=== PATIENT | male | born 1955 | race Caucasian/White ===

== ENCOUNTER 2023-10-10 14:42 | Emergency (ER) | payer OTHER, SELFPAY ==
[2023-10-10 14:46] VITALS: BP 113/73
[2023-10-10 15:06] LABS: Hematocrit 42.9 % (39.0-52.0); Hemoglobin 15.5 g/dL (13.0-18.0); Mean Corp Hgb Conc. 36.1 g/dL (33.0-37.0); Mean Corpuscular Hgb 35.1 pg (27.0-31.0); Mean Corpuscular Volume 97.3 fL (80.0-94.0); Mean Platelet Volume 10.9 fL (7.4-10.4); Platelet Count 194 10^3/uL (130-400); Red Blood Cell Count 4.41 10^6/uL (4.70-6.10); Red Cell Dist. Width 12.7 % (11.5-14.5); White Blood Cell Count 8.2 10^3/uL (4.8-10.8)
[2023-10-10 15:18] LABS: ALT (SGPT) 41 U/L (0-50); AST (SGOT) 41 U/L (17-59); Albumin 3.7 g/dl (3.5-5.0); Alkaline Phosphatase 75 U/L (38-126); Blood Urea Nitrogen 27 mg/dl (9-20); Calcium 9.3 mg/dl (8.4-10.2); Carbon Dioxide 24 mmol/L (22-30); Chloride 101 mmol/L (98-107); Glucose 100 mg/dl (70-99); Lipase 219 U/L (23-300); Potassium 3.6 mmol/L (3.5-5.1); Sodium 130 mmol/L (135-145); Total Bilirubin 0.9 mg/dl (0.2-1.3); Total Protein 6.2 g/dl (6.3-8.2); eGFR > 60.00
[2023-10-10 15:21] VITALS: BP 121/76
[2023-10-10 15:32] LABS: Lymphocytes 14 % (20-51); Segmented Neutrophils 56 % (42-75); Total Cells Counted 100
[2023-10-10 15:33] LABS: Atypical Lymphocytes 11 %; Monocytes 19 % (2-9); Platelets Checked Yes
[2023-10-10 15:34] LABS: Anisocytosis Slight; Macrocytosis 2+; Normal RBC Morphology No; Poikilocytosis 1+
[2023-10-10 15:35] LABS: Acanthocytes 1+; Hypersegmented Neutrophil 1+
[2023-10-10] MEDS: OMNIPAQUE 50 ML PO (15:54)
[2023-10-10] MEDS: ZOFRAN 4 MG IV ×2 (15:54→19:57)
[2023-10-10] MEDS: NSS 1000 IV (15:55)
[2023-10-10 15:59] LABS: NT-proBNP 996 pg/ml
[2023-10-10 16:00] VITALS: BP 130/73
--- NOTE | 2023-10-10 16:19 | ED.GENMED ---
History of Present Illness
<Veena Ruano PA-C - Last Filed: 10/12/23 10:12>
General
Chief Complaint: Abdominal Symptoms
Source: patient
Exam Limitations: none
Time Seen by Provider: 10/10/23 14:58
Nursing documentation reviewed up to this point in time: agreed with
Travel History
Have you had any contact with someone who has COVID-19?: No
Do you have any symptoms of coronavirus? Fever > 100 degrees, chills, cough, shortness of breath, sore throat, loss of taste or smell, muscle aches, or headache?: No
History of Present Illness
History of Present Illness:
68-year-old male with a history of SVT status post ablation, COPD and former smoker not on oxygen, chronic back pain, hep C
Presents for nausea, vomiting multiple episodes and less episodes of diarrhea over the past 2 days. Patient says he has been intermittently been able to tolerate oral liquids in between vomiting. He has had brief periods where he has not vomited
for 2 or 3 hours and thought maybe symptoms were resolved but then was started again. His last episode was at 1 PM today. His is concerned about how long this has been going on. He had a remote partial colon resection due to frequent
diverticulitis bouts years ago. He has never had a bowel obstruction before. Patient also has had some chest tightness which feels like wheezing at the end of his expiration over the past 2 days. He has no exertional chest pain or shortness of
breath. He chronically wheezes. 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 Patient denies alcohol abuse. He is not having significant abdominal pain but just feels globally sore and crampy. His 1 episode of
diarrhea was loose watery but other episodes were more semiformed soft
HE HAS NOT HAD ANY BLOODY STOOL, EXERTIONAL CHEST PAIN
Past History
<Veena Ruano PA-C - Last Filed: 10/12/23 10:12>
Past History
ED Past Medical History: CAD, COPD and Other (Liver cirrhosis)
Social History
Tobacco: Smoker
Alcohol: Occasional
Drug: None
Personal:
Living: with family
Family History
Family History: Diabetes, Hypertension, CAD and Other (Hyperlipidemia)
Review of Systems
<Veena Ruano PA-C - Last Filed: 10/12/23 10:12>
Review of Systems
Allergies reviewed?: Yes
All Other Systems: Not applicable
Phy Exam
<MILE Brwon Last Filed: 10/12/23 10:12>
Physical Exam
Physical Exam:
GENERAL: Alert , in no apparent distress
EYE: pupils equal and reactive
NECK: Supple
ENT: o/p clr, slightly dry mouth
CARDIAC: Regular rate and rhythm . no edema
LUNGS: no resp distress, some mild end exp wheezes, moving good air, occ cough
ABDOMEN: Soft, mild tenderness, mild distension, no r/g, no cvat, normal bowel sounds
NEUROLOGICAL: Alert and oriented, no focal neuro deficits
SKIN: Warm and dry, skin intact.
MUSCULOSKELETAL: No edema, well perfused. neg roman's sign
PSYCH: Normal and appropriate interaction.
Course
<Veena Ruano PA-C - Last Filed: 10/12/23 10:12>
Orders/Labs/Results
Orders:
Orders
10/10/23 14:48
Electrocardiogram (*1) Urgent
Reason for Study: Abdominal Pain
Other Reason for Exam: chest tightness
10/10/23 14:49
EKG- Treatment ONCE
10/10/23 14:54
Complete Blood Count/With Diff Urgent
Comprehensive Metabolic Panel Urgent
Lipase Urgent
Manual Differential Urgent
NT-proBNP Urgent
Comment: add-on
Troponin I Urgent
10/10/23 15:33
CT Abd/pel W Iv And Oral Contr Urgent
Comment:
Reason For Exam: vomting x 2 days, h/o bowel resection
Iohexol [Omnipaque] See Protocol PO NOW STA
Ondansetron Injectable [Zofran] 4 mg IV NOW STA
CR Chest - 2 Views Urgent
Comment:
Reason For Exam: chest tighrtness, copd
10/10/23 15:35
Add On- LAB Urgent
Tests Added?: bnp
0.9% Sodium Chloride 1000 ml [Nss] 1,000 ml IV BOLUS
10/10/23 17:09
COVID-19 Antigen Urgent
Source: Nasal Swab
Influenza A+B Rapid Molecular Urgent
JOSELINE Source: Nasal Swab
Specimen Description:
10/10/23 17:40
Pantoprazole [Protonix IV] 40 mg IV NOW STA
10/10/23 19:53
Ondansetron Injectable [Zofran] 4 mg IV NOW STA
Abnormal Lab Results
10/10/23
14:54
RBC 4.41 L 10^6/uL
(4.70-6.10)
MCV 97.3 H fL
(80.0-94.0)
MCH 35.1 H pg
(27.0-31.0)
MPV 10.9 H fL
(7.4-10.4)
Lymphocytes (Manual) 14 L %
(20-51)
Monocytes (Manual) 19 H %
(2-9)
Sodium 130 L mmol/L
(135-145)
BUN 27 H mg/dl
(9-20)
Glucose 100 H mg/dl
(70-99)
Total Protein 6.2 L g/dl
(6.3-8.2)
10/10/23 14:54
02/18/24 14:54
Vital Signs
Initial and Last Documented VS:
Initial Vital Signs
Temp Pulse Resp BP Pulse Ox
98.7 F 51 16 113/73 96
10/10/23 14:46 10/10/23 14:46 10/10/23 14:46 10/10/23 14:46 10/10/23 14:46
Last Documented Vital Signs
Temp Pulse Resp BP Pulse Ox
98.7 F 52 16 123/80 93
10/10/23 14:46 10/10/23 18:45 10/10/23 18:45 10/10/23 18:06 10/10/23 18:45
<KARLOS Miller - Last Filed: 10/11/23 01:02>
Orders/Labs/Results
Orders:
Orders
10/10/23 14:48
Electrocardiogram (*1) Urgent
Reason for Study: Abdominal Pain
Other Reason for Exam: chest tightness
10/10/23 14:49
EKG- Treatment ONCE
10/10/23 14:54
Complete Blood Count/With Diff Urgent
Comprehensive Metabolic Panel Urgent
Lipase Urgent
Manual Differential Urgent
NT-proBNP Urgent
Comment: add-on
Troponin I Urgent
10/10/23 15:33
CT Abd/pel W Iv And Oral Contr Urgent
Comment:
Reason For Exam: vomting x 2 days, h/o bowel resection
Iohexol [Omnipaque] See Protocol PO NOW STA
Ondansetron Injectable [Zofran] 4 mg IV NOW STA
CR Chest - 2 Views Urgent
Comment:
Reason For Exam: chest tighrtness, copd
10/10/23 15:35
Add On- LAB Urgent
Tests Added?: bnp
0.9% Sodium Chloride 1000 ml [Nss] 1,000 ml IV BOLUS
10/10/23 17:09
COVID-19 Antigen Urgent
Source: Nasal Swab
Influenza A+B Rapid Molecular Urgent
JOSELINE Source: Nasal Swab
Specimen Description:
10/10/23 17:40
Pantoprazole [Protonix IV] 40 mg IV NOW STA
10/10/23 19:53
Ondansetron Injectable [Zofran] 4 mg IV NOW STA
Abnormal Lab Results
10/10/23
14:54
RBC 4.41 L 10^6/uL
(4.70-6.10)
MCV 97.3 H fL
(80.0-94.0)
MCH 35.1 H pg
(27.0-31.0)
MPV 10.9 H fL
(7.4-10.4)
Lymphocytes (Manual) 14 L %
(20-51)
Monocytes (Manual) 19 H %
(2-9)
Sodium 130 L mmol/L
(135-145)
BUN 27 H mg/dl
(9-20)
Glucose 100 H mg/dl
(70-99)
Total Protein 6.2 L g/dl
(6.3-8.2)
10/10/23 14:54
10/10/23 14:54
Vital Signs
Initial and Last Documented VS:
Initial Vital Signs
Temp Pulse Resp BP Pulse Ox
98.7 F 51 16 113/73 96
10/10/23 14:46 10/10/23 14:46 10/10/23 14:46 10/10/23 14:46 10/10/23 14:46
Last Documented Vital Signs
Temp Pulse Resp BP Pulse Ox
98.7 F 52 16 123/80 93
10/10/23 14:46 10/10/23 18:45 10/10/23 18:45 10/10/23 18:06 10/10/23 18:45
<Veena Ruano PA-C - Last Filed: 10/12/23 10:12>
MDM/Problems Addressed
Differential Diagnosis Includes:
gastroenteritis, gastritis, SBO, acs, pneumonia
MDM/Problems Addressed:
68 y/o M with h/o copd former smoker, hep c, divertic,
here with vomiting x 2 days, mild abd pain but mostly just nausea, mild diarrhea
and some chest tightness, which is with experiation, and not pleuritic, not exertional
he has vomited many times, and in between has been able to keep down liquids but it has been 2 full days of the vomiting so he felt time to be evaluated
remote bowel resection
no fever today but may have ahd a fever
slight loose stool yesterday
chest tightness x 2 days but not exertional and not cardiac sounding
has chronic COPD
and is immunecompromised from RA( on steroids and plaquenil)
pt is nontoxic appearing
his abdomen is globally mildly distended but without focal tenderness
lungs soudn trace end exp wheezes, not signifcant
given his surgical history and his immunocompromise, will CT
he does have EKG chagne with biphasic precordial lead ST segmetns when compared to most recent EKG but going back before that, he had these t waves previously
with this ches tpain that doesn't sound like acs, i feel that 1 troponin being negitave adequately rules out this chest sypmtom
will give zofran, fluids, protonix
pending CT dispo.
<KARLOS Miller - Last Filed: 10/11/23 01:02>
MDM/Problems Addressed
MDM/Problems Addressed:
68 y/o M with h/o copd former smoker, hep c, divertic,
here with vomiting x 2 days, mild abd pain but mostly just nausea, mild diarrhea
and some chest tightness, which is with experiation, and not pleuritic, not exertional
he has vomited many times, and in between has been able to keep down liquids but it has been 2 full days of the vomiting so he felt time to be evaluated
remote bowel resection
no fever today but may have ahd a fever
slight loose stool yesterday
chest tightness x 2 days but not exertional and not cardiac sounding
has chronic COPD
and is immunecompromised from RA( on steroids and plaquenil)
pt is nontoxic appearing
his abdomen is globally mildly distended but without focal tenderness
lungs soudn trace end exp wheezes, not signifcant
given his surgical history and his immunocompromise, will CT
he does have EKG chagne with biphasic precordial lead ST segmetns when compared to most recent EKG but going back before that, he had these t waves previously
with this ches tpain that doesn't sound like acs, i feel that 1 troponin being negitave adequately rules out this chest sypmtom
will give zofran, fluids, protonix
pending CT dispo.
194: Received signout. CAT scan is unremarkable. On exam patient reports he is feeling better. He has been drinking water. He feels very mildly nauseous. Will DC with Zofran, Protonix will give dose of Zofran now. Discussed with patient her
close outpatient follow-up with family doctor in the next 2 days and he is to return if any worsening of symptoms
<KARLOS Miller - Last Filed: 10/11/23 01:02>
*Critical Care Note
Total Time (30-74mins, 75-104mins- exclusive of procedures): Not Applicable
ED Attending Note
<Veena Ruano PA-C - Last Filed: 10/12/23 10:12>
-
Portions of this chart may have been created with voice recognition software.� Occasional wrong word or��sound alike� substitutions may have occurred due to the inherent limitations of voice recognition software.
Discharge Plan
Departure
Patient Disposition: Home (Routine Discharge)
Date of Disposition: 10/10/23
Time of Disposition: 19:52
Patient with high blood pressure during this ER visit?: No
Condition: Fair
Covid-19: Not Applicable
Discharge Problem:
Abdominal pain, nausea and vomiting
Instructions: Clear Liquid Diet, Nausea and Vomiting, Adult (DC), Abdominal Pain
Prescriptions:
New
ondansetron 4 mg tablet,disintegrating
4 mg PO Q8H PRN (Reason: nausea and vomiting) Qty: 10 0RF
pantoprazole [Protonix] 40 mg tablet,delayed release (DR/EC)
40 mg PO DAILY Qty: 14 0RF
No Action
hydroxychloroquine 200 MG tablet
200 mg PO BID
prednisone 5 MG tablet
7.5 mg PO DAILY@1929
tiotropium bromide [Spiriva with HandiHaler] 18 MCG capsule, w/inhalation device
1 puff inhalation R DAILY@1599
dabigatran etexilate [Pradaxa] 150 MG capsule
150 mg PO BID Qty: 60 2RF
diltiazem HCl 120 MG capsule,extended release 24hr
120 mg PO BID Qty: 60 0RF
acebutolol 400 mg Capsule
400 mg PO DAILY@1929
aspirin 81 mg Tablet,Delayed Release (Dr/Ec)
81 mg PO DAILY
leflunomide 20 mg Tablet
20 mg PO DAILY
hydrochlorothiazide 25 mg Tablet
25 mg PO DAILY
fluticasone furoate-vilanterol [Breo Ellipta] 200-25 mcg/dose Blister With Device
1 inh INHALATION R DAILY@1599
atorvastatin 80 MG tablet
80 mg PO DAILY@1929
Referrals:
Demetrius Viera PA-C [Family Provider] -
Activity Restrictions/Additional Instructions:
You were given a prescription for Zofran for nausea to take as directed every 8 hours as needed. This is a oral disintegrating tablet. Also given a prescription for Protonix to take daily for the next 2 weeks. Clear liquids for the first 24
hours followed by bland solid foods. Follow-up with your family doctor the next 2 to 3 days but return if any worsening of symptoms including continued vomiting not being able to tolerate fluids worsening abdominal pain fever chills or any further
concerns.
Interventions
Interventions:
*Risk Screen - Suicide Last Done: 10/10/23 14:49
*General Assessment Last Done: 10/10/23 14:49
*Neglect/Abuse Screening Last Done: 10/10/23 14:49
ED- Fall Risk Assessment Last Done: 10/10/23 16:14
*ED COVID-19 Vaccine History Last Done: 10/10/23 14:46
*Nursing Disposition Last Done: 10/10/23 20:21
DM-Qalcsx-Eqrdsazoxl Assessment Last Done: 10/10/23 14:49
Discharge Date and Time
Discharge Date/Time: 10/10/23 20:22
[2023-10-10 17:38] LABS: COVID-19 Antigen Negative (Negative)
[2023-10-10 17:42] VITALS: BP 144/105
[2023-10-10 18:06] VITALS: BP 123/80
[2023-10-10] MEDS: PROTONIX IV 40 MG IV (18:43)
== END 2023-10-10 20:22 | disposition home or self-care (01) ==
LOC: EMR 14:42
PROVIDERS: Physician Assistant; EMERGENCY PHYSICIAN Emergency Medicine; FAMILY PHYSICIAN Physician Assistant Medical
DX: R10.9 Unspecified abdominal pain (principal); R11.2 Nausea with vomiting, unspecified; R19.7 Diarrhea, unspecified; I47.10 Supraventricular tachycardia, unspecified; J44.9 Chronic obstructive pulmonary disease, unspecified; I25.10 Atherosclerotic heart disease of native coronary artery without angina pectoris; K74.60 Unspecified cirrhosis of liver; F17.200 Nicotine dependence, unspecified, uncomplicated; Z83.3 Family history of diabetes mellitus; Z83.438 Family history of other disorder of lipoprotein metabolism and other lipidemia; Z83.49 Family history of other endocrine, nutritional and metabolic diseases; Z86.79 Personal history of other diseases of the circulatory system; Z90.49 Acquired absence of other specified parts of digestive tract
CPT/HCPCS: 99284; 96374; 96375; 96376; 96361; 71046; 74177; 80053; 83690; 83880; 84484; 85025; 87502; 87811; 93005; Q9967

== ENCOUNTER 2023-11-16 16:32 | Inpatient (IN) | payer OTHER, SELFPAY ==
[2023-11-15] VITALS (7 sets, daily range): BP systolic 110–168; BP diastolic 74–96
[2023-11-15] MEDS: MORPHINE SULFATE 4 MG IV (16:32)
[2023-11-15] MEDS: NSS 500 IV (16:32)
[2023-11-15] MEDS: ZOFRAN 4 MG IV ×2 (16:32→20:43)
[2023-11-15 16:47] LABS: % Basophils 0.8 % (0-2); % Immature Granulocytes 0.6 % (0-0.5); % Lymphocytes 10.2 % (20.5-51.1); % Neutrophils 74.4 % (42.2-75.2); Absolute Basophils 0.1 10^3/uL (0-0.2); Absolute Immature Granulocytes 0.1 10^3/uL (0-0.05); Absolute Monocytes 1.3 10^3/uL (0.1-0.6); Absolute Neutrophils 7.1 10^3/uL (1.4-6.5); Hematocrit 44.5 % (39.0-52.0); Hemoglobin 15.8 g/dL (13.0-18.0); Mean Corp Hgb Conc. 35.5 g/dL (33.0-37.0); Mean Corpuscular Hgb 34.9 pg (27.0-31.0); Mean Corpuscular Volume 98.2 fL (80.0-94.0); Mean Platelet Volume 11.4 fL (7.4-10.4); Nucleated Red Blood Cells % 0 % (-); Platelet Count 174 10^3/uL (130-400); Red Blood Cell Count 4.53 10^6/uL (4.70-6.10); Red Cell Dist. Width 12.8 % (11.5-14.5); White Blood Cell Count 9.6 10^3/uL (4.8-10.8)
[2023-11-15 17:32] LABS: ALT (SGPT) 44 U/L (0-50); AST (SGOT) 49 U/L (17-59); Albumin 3.8 g/dl (3.5-5.0); Alkaline Phosphatase 71 U/L (38-126); Blood Urea Nitrogen 39 mg/dl (9-20); Calcium 9.7 mg/dl (8.4-10.2); Carbon Dioxide 24 mmol/L (22-30); Chloride 99 mmol/L (98-107); Glucose 111 mg/dl (70-99); Lipase 300 U/L (23-300); Potassium 3.4 mmol/L (3.5-5.1); Sodium 129 mmol/L (135-145); Total Bilirubin 1.1 mg/dl (0.2-1.3); Total Protein 6.3 g/dl (6.3-8.2); eGFR > 60.00
[2023-11-15 17:41] LABS: Troponin I 0.019 ng/ml
--- NOTE | 2023-11-15 19:09 | ED.GENMED ---
History of Present Illness
General
Chief Complaint: Abdominal Pain
Source: patient, records and spouse
Exam Limitations: none
Time Seen by Provider: 11/15/23 14:52
Nursing documentation reviewed up to this point in time: agreed with
Travel History
Have you had any contact with someone who has COVID-19?: No
Do you have any symptoms of coronavirus? Fever > 100 degrees, chills, cough, shortness of breath, sore throat, loss of taste or smell, muscle aches, or headache?: No
History of Present Illness
History of Present Illness:
68-year-old male with a past medical history of COPD, hepatitis C, prior history of diverticulitis and nephrolithiasis who presents to the emergency department for evaluation of abdominal pain. Patient reports onset of symptoms a few days ago and
have been intermittent since that time, constant today since 11 AM. He reports pain is located in left lower abdomen/periumbilical region. No clear triggering or relieving factors noted. Associated with nausea and multiple episodes of nonbloody
vomiting. He denies diarrhea or constipation. Denies fevers or chills. Denies any dysuria, hematuria, change in urinary frequency. He denies any other complaints. He has a prior history of partial colonic resection secondary to diverticulitis.
Past History
Past History
ED Past Medical History: CAD, COPD and Other (Liver cirrhosis)
Social History
Tobacco: Smoker
Alcohol: Occasional
Drug: None
Personal:
Living: with family
Family History
Family History: Diabetes, Hypertension, CAD and Other (Hyperlipidemia)
Review of Systems
Review of Systems
All Other Systems: ROS reviewed and negative except as documented in HPI and ROS
Constitutional: Denies fever or chills
EENT: Denies sore throat or runny nose
Respiratory: Denies cough or trouble breathing
Cardiac: Denies chest pain
ABD/GI: Reports abdominal pain, nausea and vomiting; Denies diarrhea or constipated
: Denies dysuria, frequency or flank pain
Musculoskeletal: Denies neck pain or back pain
Neurological: Denies headache, weakness or numbness
Phy Exam
Physical Exam
Physical Exam:
General: Awake, alert, oriented x3; appears mildly uncomfortable laying on his side in the stretcher, holding emesis bag
Head: Normocephalic, atraumatic
Eyes: Conjunctiva normal, sclera anicteric, pupils equal round and reactive to light bilaterally
Throat: Airway intact, handling secretions
Neck: Trachea midline, supple without meningismus
Lungs: Clear to auscultation bilaterally, no wheezing, rales, rhonchi
Heart: Regular rate and rhythm, no murmurs, gallops, or rubs
Abd: Soft, non distended, mildly tender to palpation periumbilical region and left lower quadrant with no peritoneal signs and no palpable masses or hernias
Neuro: No gross deficits
Skin: no rash
Extremities: Warm and well-perfused with no notable edema
Scores
Heart Failure Risk
Heart Failure Risk Score: Not Applicable
Heart Score for Chest Pain Patients
STEMI patient?: Not applicable
Withdrawal Assessment of Alcohol
Withdrawal Assessment Completed?: Not applicable
Course
Orders/Labs/Results
Orders:
Orders
11/15/23 16:02
Urinalysis Reflex To Culture Urgent
Iohexol [Omnipaque] See Protocol PO NOW STA
Morphine Sulfate 4 mg IV NOW STA
Ondansetron Injectable [Zofran] 4 mg IV NOW STA
11/15/23 16:13
CT Abd/pelvis W Iv Cont Urgent
Comment:
Reason For Exam: LLQ abd pain/flank pain
11/15/23 16:19
0.9% Sodium Chloride 500 ml [Nss] 500 ml IV BOLUS
11/15/23 16:21
Electrocardiogram (*1) Urgent
Reason for Study: Abdominal Pain
EKG- Treatment ONCE
11/15/23 16:29
Complete Blood Count/With Diff Urgent
Comprehensive Metabolic Panel Urgent
Lipase Urgent
Troponin I Urgent
11/15/23 20:33
HYDROmorphone [Dilaudid] 0.5 mg IV NOW STA
Mag Hydrox/Al Hydrox/Simeth [Maalox] 30 ml Phenobarb/Hyoscy/Atropine/Scop [] 10 ml PO NOW
Ondansetron Injectable [Zofran] 4 mg IV NOW STA
Pantoprazole [Protonix IV] 40 mg IV NOW STA
11/15/23 20:35
GASTROINTESTINAL CONSULT Urgent
Consulting Provider: Garret Hahn
Was physician already notified: Yes
Abnormal Lab Results
11/15/23
16:29
RBC 4.53 L 10^6/uL
(4.70-6.10)
MCV 98.2 H fL
(80.0-94.0)
MCH 34.9 H pg
(27.0-31.0)
MPV 11.4 H fL
(7.4-10.4)
Abs Immat Gran (auto) 0.1 H 10^3/uL
(0-0.05)
Absolute Neuts (auto) 7.1 H 10^3/uL
(1.4-6.5)
Absolute Lymphs (auto) 1.0 L 10^3/uL
(1.2-3.4)
Absolute Monos (auto) 1.3 H 10^3/uL
(0.1-0.6)
Immature Gran % 0.6 H %
(0-0.5)
Lymphocytes % 10.2 L %
(20.5-51.1)
Monocytes % 14.0 H %
(1.7-9.3)
Sodium 129 L mmol/L
(135-145)
Potassium 3.4 L mmol/L
(3.5-5.1)
BUN 39 H mg/dl
(9-20)
Glucose 111 H mg/dl
(70-99)
11/15/23 16:29
11/15/23 16:29
Vital Signs
Initial and Last Documented VS:
Initial Vital Signs
Temp Pulse Resp BP Pulse Ox
36.5 C 60 18 168/96 95
11/15/23 14:18 11/15/23 14:18 11/15/23 14:18 11/15/23 14:18 11/15/23 14:18
Last Documented Vital Signs
Temp Pulse Resp BP Pulse Ox
36.5 C 63 21 136/82 94
11/15/23 14:18 11/15/23 17:30 11/15/23 17:30 11/15/23 17:00 11/15/23 17:30
MDM/Problems Addressed
Differential Diagnosis Includes:
Diverticulitis, nephrolithiasis, pyelonephritis, gastritis, pancreatitis, bowel obstruction
MDM/Problems Addressed:
68-year-old male presents for evaluation of abdominal pain intermittently over the past few days constant since 11 AM today associated with nausea and vomiting. Hypertensive but otherwise normal vitals. Physical exam as above. Plan to place an IV
check labs including CBC and CMP, lipase. Will send for CT of the abdomen pelvis. Will treat symptomatically and provide fluids. Will monitor closely reassess after the above.
Labs reviewed: CBC unremarkable, CMP shows some hyponatremia to 129 with mild hypokalemia 3.4; supple creatinine. Liver function test normal. Lipase normal. He had an EKG and a troponin sent in triage with his nausea and vomiting; troponin
undetectable and EKG shows no STEMI. QT interval acceptable. Awaiting results of CT.
CT shows no acute pathology to account for patient's symptoms. Clinical reassessment patient minimal improvement still laying on the side of the bed holding emesis basin and dry heaving. Will treat with additional medications. He had a very
similar presentation in September no clear cause was identified for his symptoms at that point in time. This is now his second visit for these issues at this time symptoms are improving symptomatic treatment. Suspect likely acute gastritis or
potentially gastric ulcer at this point. Will admit for continued symptom management and GI consultation�discussed case with GI for evaluation. Discussed case with hospitalist for admission.
Chronic conditions affecting care:
Hypertension, surgical history of bowel resection
Acute Exacerbation and/or Progression of Chronic Illness:
Acutely hypertensive resolved with treatment of his symptoms
Acute Exacerbation and/or Progression of Chronic Illness: HTN
*Radiology
Radiology exam reviewed: radiology read reviewed
*Pulse Oximetry
Patient hypoxic: no
*EKG
Interpreted by ED Provider?: Yes
Heart Rate: 55
Rate: bradycardiac
Rhythm: sinus
[place]: left axis deviation
Interval: normal interval
QRS Pattern: normal QRS
Ischemia: other (Patient has biphasic T waves anterior lateral leads similar to prior EKG)
*Critical Care Note
Total Time (30-74mins, 75-104mins- exclusive of procedures): Not Applicable
Data Reviewed
Review of Other/Old Records Reveals: Labs, Records and Radiology Studies
Source: patient and spouse
Patient Management
Discussion with other providers: Hospitalist (Discussed with hospitalist) and Senior Planning Analyst (Discussed with gastroenterology)
Escalation/DeEscalation of care consider admission/obs:
Admission indicated
ED Attending Note
-
Portions of this chart may have been created with voice recognition software.� Occasional wrong word or��sound alike� substitutions may have occurred due to the inherent limitations of voice recognition software.
Discharge Plan
Departure
Admit to doctor: [facility]
Presentation/result/management discussed w/ accepting MD/DO: Hospitalist
Discharge Problem:
Intractable abdominal pain, Nausea & vomiting, Hypokalemia
Prescriptions:
No Action
hydroxychloroquine 200 MG tablet
200 mg PO BID
prednisone 5 MG tablet
7.5 mg PO DAILY@1930
tiotropium bromide [Spiriva with HandiHaler] 18 MCG capsule, w/inhalation device
1 puff inhalation R DAILY@1600
dabigatran etexilate [Pradaxa] 150 MG capsule
150 mg PO BID Qty: 60 2RF
diltiazem HCl 120 MG capsule,extended release 24hr
120 mg PO BID Qty: 60 0RF
acebutolol 400 mg Capsule
400 mg PO DAILY@1929
aspirin 81 mg Tablet,Delayed Release (Dr/Ec)
81 mg PO DAILY
leflunomide 20 mg Tablet
20 mg PO DAILY
hydrochlorothiazide 25 mg Tablet
25 mg PO DAILY
fluticasone furoate-vilanterol [Breo Ellipta] 200-25 mcg/dose Blister With Device
1 inh INHALATION R DAILY@1600
atorvastatin 80 MG tablet
80 mg PO DAILY@1929
ondansetron 4 mg tablet,disintegrating
4 mg PO Q8H PRN (Reason: nausea and vomiting) Qty: 10 0RF
pantoprazole [Protonix] 40 mg tablet,delayed release (DR/EC)
40 mg PO DAILY Qty: 14 0RF
Referrals:
Demetrius Viera PA-C [Family Provider] -
Interventions
Interventions:
*Risk Screen - Suicide Last Done: 11/15/23 14:18
*General Assessment Last Done: 11/15/23 14:18
*Neglect/Abuse Screening Last Done: 11/15/23 14:18
*ED COVID-19 Vaccine History Last Done: 11/15/23 16:44
FQ-Pazkft-Jrcwnowtwy Assessment Last Done: 11/15/23 16:43
[2023-11-15] MEDS: DILAUDID 0.5 MG IV (20:42)
[2023-11-15] MEDS: MAALOX 40 PO (20:42)
[2023-11-15] MEDS: PROTONIX IV 40 MG IV (20:42)
--- NOTE | 2023-11-15 21:36 | HPS.HSE ---
Family Physician
-
Family Physician: Demetrius Viera
Chief Complaint
-
abdominal pain
History of Present Illness
68-year-old male past medical history of hepatitis C, prior alcohol use, alcoholic cirrhosis, CAD, paroxysmal atrial fibrillation, COPD, diverticulitis status post partial colonic resection in 2011, nephrolithiasis, CVA, rheumatoid arthritis,
smoking, MAC infection, presenting to the emergency room for abdominal pain. Abdominal pain started few days ago and has been intermittent since then constant since 11 AM today. Pain is located in the left lower abdomen/periumbilical region. Pain
does not radiate to the chest or back or flank. Pain is described as a muscle spasms can change in intensity. He had multiple episodes of vomiting over the past several days. He also has a feeling like he has to have a bowel movement and some
rectal pressure but nothing has come out. Denies any diarrhea or constipation.
Patient had pain like this previously in September and was given Zofran, IV fluids and Protonix with improvement in pain and he was discharged. He denies any chronic pain.
Pain is slightly better when he lies on his right side. No change in eating although he has not been able to eat because he has been constantly vomiting over the past few days. He did have some esophageal irritation after vomiting. He denies any
diarrhea or constipation. He denies any fevers or chills. Denies any urinary symptoms.
He does use marijuana occasionally which has not used in a few days. No longer drinks alcohol. No longer smokes.
Medical History
Past Medical History
Past Medical History: Reports Other (hepatitis C, prior alcohol use, alcoholic cirrhosis, CAD, paroxysmal atrial fibrillation, COPD, diverticulitis status post partial colonic resection in 2012, nephrolithiasis, CVA, rheumatoid arthritis, smoking,
MAC infection)
Past Surgical History: Reports Bowel Resection
Social History
Tobacco: Former Smoker
Alcohol: Former
Drug: Marijuana
Family History
Family History: Not pertinent
Allergies / Home Medications
Allergies reflects when Allergies were last updated in [facility].
Home Medications with original date entered in [facility]
Allergy/Medication List:
Allergies
Allergy/AdvReac Type Severity Reaction Status Date / Time
No Known Allergies Allergy Verified 10/10/23 14:48
Home Medications
hydroxychloroquine 200 mg tablet 200 mg PO BID rheumatoid arthritis 06/05/20
prednisone 5 mg tablet 7.5 mg PO DAILY@1929 Anti-inflammatory 07/13/20
tiotropium bromide 18 mcg capsule with inhalation device (Spiriva with HandiHaler) 1 puff inhalation R DAILY@1600 Lung/breathing issues 07/13/20
dabigatran etexilate 150 mg capsule (Pradaxa) 150 mg PO BID #60 caps 07/16/20
diltiazem HCl 120 mg capsule,extended release 24 hr 120 mg PO BID ##60 07/16/20
acebutolol 400 mg capsule 400 mg PO DAILY@192910/10/23
aspirin 81 mg tablet,delayed release 81 mg PO DAILY 10/10/23
atorvastatin 80 mg tablet 80 mg PO DAILY@1930 10/10/23
fluticasone furoate 200 mcg-vilanterol 25 mcg/dose inhalation powder (Breo Ellipta) 1 inh inhalation R DAILY@1600 10/10/23
hydrochlorothiazide 25 mg tablet 25 mg PO DAILY 10/10/23
leflunomide 20 mg tablet 20 mg PO DAILY 10/10/23
ondansetron 4 mg disintegrating tablet 4 mg PO Q8H PRN nausea and vomiting #10 tabs 10/10/23
pantoprazole 40 mg tablet,delayed release (Protonix) 40 mg PO DAILY #14 tabs 10/10/23
Review of Systems
-
History Source: Patient
A 12 point ROS was completed and negative except as noted: Yes
Constitutional: Reports No Symptoms
EENT: Reports No Symptoms
Respiratory: Reports No Symptoms
Cardiac: Reports No Symptoms
Abdomen/GI: Reports See HPI
: Reports No Symptoms
Musculoskeletal: Reports No Symptoms
Skin: Reports No Symptoms
Neurological: Reports No Symptoms
Endocrine: Reports No Symptoms
Hematologic/Lymphatic: Reports No Symptoms
Psych: Reports No Symptoms
Physical Exam
Vital Signs
Vital Signs
Temp Pulse Resp BP Pulse Ox
97.7 F 57 17 138/74 95
11/15/23 14:18 11/15/23 21:00 11/15/23 21:00 11/15/23 18:00 11/15/23 21:00
Physical Exam
General: Well Developed, Well Nourished and No Apparent Distress
HEENT: NormoCephalic, Moist mucous membranes and Atraumatic
Respiratory: Clear
Cardiac: S1/S2 and Regular Rhythm; No Murmur or Rub
GI: Soft, Non Distended, Normal Bowel Sounds and Tender (LLQ ); No Organomegaly
Rectal: Deferred by Provider
Musculoskeletal: No Clubbing, No Cyanosis and No Edema
Skin: No Rash
Neuro: Nonfocal/grossly intact
Laboratory Results
-
11/15/23 16:29
11/15/23 16:29
Laboratory Results
Total Bilirubin 1.1 mg/dl (0.2-1.3) 11/15/23 16:29
AST 49 U/L (17-59) 11/15/23 16:29
ALT 44 U/L (0-50) 11/15/23 16:29
Alkaline Phosphatase 71 U/L (38-126) 11/15/23 16:29
Troponin I 0.019 ng/ml 11/15/23 16:29
Lipase 300 U/L (23-300) 11/15/23 16:29
Data Reviewed
-
Lab Data: Labs Reviewed by me
Old Records: Reviewed
Impression/Plan
-
IMPRESSION:
PLAN:
# Intractable abdominal pain unclear etiology possibly gastritis, given chronic steroid use
-Lipase 300
-EKG without any new changes
-CT abdomen pelvis shows no evidence of acute pathology in the abdomen or pelvis
-Protonix given
-Morphine, Dilaudid given
-Zofran given
-IV fluids given, continue
-As needed dicyclomine
-Continue as needed Dilaudid
-Continue Protonix twice daily
-N.p.o. for now
-GI consulted
# Hypokalemia secondary to vomit
-Replete potassium
# Chronic hyponatremia
-Stable
History of hepatitis C status posttreatment
History of alcoholic cirrhosis
Coronary artery disease
-Continue aspirin
-Continue acebutolol
Paroxysmal atrial fibrillation
-Continue Pradaxa
-Continue diltiazem
COPD
-Continue inhalers
History of diverticulitis status post partial colonic resection
History of nephrolithiasis
History of CVA
-Continue statin
Essential hypertension
-Continue hydrochlorothiazide
History of MAC infection
Rheumatoid arthritis
-Continue leflunomide, prednisone
Marijuana user
Former alcohol user
Former smoker
Full code
DVT prophylaxis�heparin
N.p.o.
[2023-11-15] MEDS: KCL 260 MEQ IV (21:49)
[2023-11-16] VITALS (7 sets, daily range): BP systolic 97–143; BP diastolic 64–93; BMI 21.6; BMI 21.0
[2023-11-16] MEDS: NSS 1000 IV ×2 (00:53→15:22)
--- NOTE | 2023-11-16 05:17 | W.PN.UPDATE ---
Update Note
Progress Note Update
pt ordered pradaxa and heparin sq.
Admitting note states cont pradaxa, so will dc heparin sq
[2023-11-16 06:24] LABS: % Basophils 1.3 % (0-2); % Immature Granulocytes 0.4 % (0-0.5); % Lymphocytes 20.1 % (20.5-51.1); % Monocytes 17.7 % (1.7-9.3); % Neutrophils 60.5 % (42.2-75.2); Absolute Basophils 0.1 10^3/uL (0-0.2); Absolute Lymphocytes 1.3 10^3/uL (1.2-3.4); Absolute Monocytes 1.2 10^3/uL (0.1-0.6); Hematocrit 39.3 % (39.0-52.0); Hemoglobin 13.4 g/dL (13.0-18.0); Mean Corp Hgb Conc. 34.1 g/dL (33.0-37.0); Mean Corpuscular Hgb 34.7 pg (27.0-31.0); Mean Corpuscular Volume 101.8 fL (80.0-94.0); Mean Platelet Volume 11.6 fL (7.4-10.4); Nucleated Red Blood Cells % 0 % (-); Platelet Count 151 10^3/uL (130-400); Red Blood Cell Count 3.86 10^6/uL (4.70-6.10); Red Cell Dist. Width 12.8 % (11.5-14.5); White Blood Cell Count 6.7 10^3/uL (4.8-10.8)
--- NOTE | 2023-11-16 06:54 | CON.GI ---
Addendum entered and electronically signed by Garret Hahn MD 11/16/23 17:36:
I saw and examined the patient.
The PA's note was reviewed and I agree with the note.
Comment:
Pt is a 68 year old male with h/o HCV s/p Epclusa with F2-3 on fibroscan, prior ETOH, afib on Pradaxa,�CAD, PAD, COPD, RA on Hydroxychloroquine, Prednisone,�and leflunomide, diverticulitis with prior resection, MAC infection who p/w abdominal pain
and vomiting.�
Impression / Rec:
1. Abdominal pain - started from about month ago, had milder pain in the interim but severe episode x 2, this is the second admission for this. CT in with IV and oral contrast unremarkable, and repeat on admission with IV contrast without
significant findings. Has been having normal BM during these episodes, no blood in stool or diarrhea. Normal LFT's and lipase. Last colonoscopy at 2008 and possible repeat around 2011 with prior diverticulitis episode.� No prior EGD.� The
etiology of his pain is unclear at this time. Will consider EGD/colonoscopy for further eval given this is his second presentation for his recurrent symptoms. CLD tomorrow and bowel prep tomorrow for procedures .
Original Note:
Consultation
-
Date/Time Consultation Requested: 11/15/232029
Date/Time Consultation Performed: 11/16/23814
Requesting Provider: Prem Dacosta MD
Performing Provider: KARLOS Cazares, Garret Hahn MD
Reason for Consultation: abdominal pain
Medical History
Chief Complaint / HPI
Chief Complaint: abdominal pain
History of Present Illness:
Pt is a 68yo with hx hep C with prior treatment with Epclusa in 2016 with fibroscan F2-3 at that time, prior ETOH last 8 years ago, afib on Pradaxa, CAD, PAD, COPD,RA on chronic Hydroxychloroquine, Prednisone, and leflunomide, TIA,
diverticulitis with prior resection, MAC infection with admission for abdominal pain and vomiting . Pt has CT in September with IV and oral contrast with similar symptoms and repeat on admission with IV contrast without significant findings. Labs
notable for macrocytosis with normal hbg, Na 129, k 3.4, with normal LFT's and lipase.
In reviewing with patient pain is intermittent. Was worse in September with neg work up now recurrent. Pain is left mid/ Left lower quadrant. Some improvement with lying on right side. He denies pain at hip site. He admits to nausea with
dry heaves and wt loss with not eating and decreased appetite due to pain. He denies dysphagia, GERD, diarrhea, constipation or rectal bleeding. Last colonoscopy at 2008 and possible repeat around 2011 with prior diverticulitis episode. No
prior EGD. No NSAID use or recent change in medications.
Past Medical History
Past Medical History: Arrhythmias (SVT, PAF), CAD, COPD, CVA (TIA), HTN and Other (hep C, ETOH abuse quit 8 years ago, diverticulitis, pre DM, nicotine dependence, prior tobacco, emphysema, nephrolithiasis, RA, MAC infection)
Past Surgical History: Cardiac (SVT ablation) and Other (large bowel resection, lipoma excision from leg)
Social History
Tobacco: Former Smoker (quit 4 years ago )
Alcohol: Former (quit 8 years ago )
Drug: Marijuana
Personal:
Living: With Family
Employment: Retired
Family History
Family History: Other (father with hx polyps)
Allergies / Home Medications
Allergy/AdvReac Type Severity Reaction Status Date / Time
No Known Allergies Allergy Verified 10/10/23 14:48
Medication Instructions Recorded
hydroxychloroquine 200 mg tablet 200 mg PO BID rheumatoid arthritis 06/05/20
prednisone 5 mg tablet 7.5 mg PO DAILY@1930 07/13/20
Anti-inflammatory
tiotropium bromide 18 mcg capsule 1 puff inhalation R DAILY@1600 07/13/20
with inhalation device (Spiriva Lung/breathing issues
with HandiHaler)
dabigatran etexilate 150 mg 150 mg PO BID #60 caps 07/16/20
capsule (Pradaxa)
diltiazem HCl 120 mg 120 mg PO BID ##60 07/16/20
capsule,extended release 24 hr
acebutolol 400 mg capsule 400 mg PO DAILY@1930 10/10/23
aspirin 81 mg tablet,delayed 81 mg PO DAILY 10/10/23
release
atorvastatin 80 mg tablet 80 mg PO DAILY@1930 10/10/23
fluticasone furoate 200 1 inh inhalation R DAILY@1600 10/10/23
mcg-vilanterol 25 mcg/dose
inhalation powder (Breo Ellipta)
hydrochlorothiazide 25 mg tablet 25 mg PO DAILY 10/10/23
leflunomide 20 mg tablet 20 mg PO DAILY 10/10/23
ondansetron 4 mg disintegrating 4 mg PO Q8H PRN nausea and 10/10/23
tablet vomiting #10 tabs
pantoprazole 40 mg tablet,delayed 40 mg PO DAILY #14 tabs 10/10/23
release (Protonix)
Review of Systems
-
History Source: Patient
Constitutional: Reports Weight Loss and Fatigue
EENT: Reports No Symptoms
Respiratory: Reports No Symptoms
Abdomen/GI: Reports Abdominal Pain (LLQ ) and Nausea (with mostly dry heaves )
: Reports No Symptoms
Musculoskeletal: Reports Joint Pain (with hx RA)
Neurological: Reports No Symptoms
Endocrine: Reports No Symptoms
Hematologic/Lymphatic: Reports No Symptoms
Vital Signs
Temp Pulse Resp BP Pulse Ox
97.7 F 52 14 97/67 94
11/15/23 14:18 11/16/23 05:45 11/16/23 05:45 11/16/23 00:00 11/16/23 01:45
Physical Exam
Exam
General: Well Developed, Well Nourished and No Apparent Distress
HEENT: Normocephalic and Anicteric
Respiratory: Clear
Cardiac: Other (bradycardia )
GI: Soft, Non Distended and Tender (LLQ without rebound or guarding)
Musculoskeletal: No Clubbing and No Cyanosis
Skin: Warm and Dry
Neuro: Awake, Alert and AO x 3
Psych: Calm
Results
WBC 6.7 10^3/uL (4.8-10.8) 11/16/23 05:55
Hgb 13.4 g/dL (13.0-18.0) 11/16/23 05:55
Hct 39.3 % (39.0-52.0) 11/16/23 05:55
MCV 101.8 fL (80.0-94.0) H 11/16/23 05:55
Plt Count 151 10^3/uL (130-400) 11/16/23 05:55
Absolute Neuts (auto) 4.0 10^3/uL (1.4-6.5) 11/16/23 05:55
Sodium 129 mmol/L (135-145) L 11/15/23 16:29
Potassium 3.4 mmol/L (3.5-5.1) L 11/15/23 16:29
Chloride 99 mmol/L (98-107) 11/15/23 16:29
Carbon Dioxide 24 mmol/L (22-30) 11/15/23 16:29
BUN 39 mg/dl (9-20) H 11/15/23 16:29
Creatinine 1.2 mg/dL (0.7-1.3) 11/15/23 16:29
Calcium 9.7 mg/dl (8.4-10.2) 11/15/23 16:29
Total Bilirubin 1.1 mg/dl (0.2-1.3) 11/15/23 16:29
AST 49 U/L (17-59) 11/15/23 16:29
ALT 44 U/L (0-50) 11/15/23 16:29
Alkaline Phosphatase 71 U/L (38-126) 11/15/23 16:29
Lipase 300 U/L (23-300) 11/15/23 16:29
Diagnostic Image Results:
11/15/23 CT Abd/pelvis W Iv Cont
There is no evidence of acute pathology in the abdomen or pelvis
Imaging for bowel pathology is limited by the lack of enteric contrast
If there is clinical concern for bowel pathology, this study could be repeated with enteric contrast
There is distal sigmoid anastomosis
Diverticuli are present in the colon with no CT evidence of diverticulitis
10/10/23 CT A/p IV and oral
No CT evidence for an acute process in the abdomen or pelvis.
Prior GI Procedures:
EGD: none
Colonoscopy: 2008 [place] -diverticulosis, non bleeding hemorrhoids
Assessment / Plan
-
Pt is a 68yo with hx hep C prior Epclusa treatment with F2-3 on fibroscan at that time, prior ETOH, afib on Pradaxa, CAD, PAD, COPD, RA on Hydroxychloroquine, Prednisone, and leflunomide, diverticulitis with prior resection, MAC infection with
admission for abdominal pain and vomiting. Pt has CT in September with IV and oral contrast and repeat on admission with IV contrast without significant findings. Labs notable for macrocytosis with normal hbg, Na 129, k 3.4, with normal LFT's and
lipase. Last colonoscopy at 2008 and possible repeat around 2011 with prior diverticulitis episode. No prior EGD. No NSAID use or recent change in medications.
-left mid/lower abdominal pain
-nausea/dry heaves with left sided pain
-wt loss
-bradycardia in exam
-macrocytosis
-afib on Pradaxa
-Hx hep C prior Epclusa treatment , prior ETOH abuse
other medical problems:
-RA on Hydroxychloroquine, Prednisone, and leflunomide
-COPD
-CAD
-diverticulitis with prior resection 2011 at [facility]
-MAC infection
-TIA
PLAN:etiology of abdominal pain with vomiting with wt loss unclear
CT x 2 stable and now large volume vomiting
t/c EGD/colon with wt loss weight 70 kg in 2020 now down to [address] Ballard for Pradaxa hold and HR issues
will review with Dr. Hahn
hold diet til decide on scopes
hx hep C with prior treatment. Liver appears compensated with normal LFT's, albumin, platelet and liver normal on 2 CT's will add INR
will follow
-
-
Thank you for consultation and allowing me to participate in the patient's care. Please call the television specialist GI physician during the after hours with any questions or concerns.
[2023-11-16 07:10] LABS: Urine Albumin Trace (Neg - Trace); Urine Bilirubin Negative (Negative); Urine Glucose Negative (Negative); Urine Ketone Trace (Negative); Urine Leukocyte Negative (Negative); Urine Nitrite Negative (Negative); Urine Occult Blood Negative (Negative); Urine Specific Gravity 1.015 (<1.030); Urine Urobilinogen Negative (Neg - 1+)
[2023-11-16 07:11] LABS: Urine Character Clear (Clear); Urine Color Yellow
[2023-11-16] MEDS: SYMBICORT 160/4.5 MCG INHALER 2 PUFF INH (08:40)
[2023-11-16] MEDS: SPIRIVA RESPIMAT 2.5 MCG 2 PUFF INH (08:43)
[2023-11-16] MEDS: ORETIC PO (08:47)
[2023-11-16] MEDS: PROTONIX IV 40 MG IV ×2 (09:56→21:45)
[2023-11-16] MEDS: NSS (PRESERVATIVE FREE) 10 ML IV ×2 (09:56→21:45)
[2023-11-16] MEDS: ASPIR LOW (ENTERIC COATED) 81 MG PO (10:01)
[2023-11-16 11:42] LABS: Blood Urea Nitrogen 24 mg/dl (9-20); Calcium 8.5 mg/dl (8.4-10.2); Carbon Dioxide 23 mmol/L (22-30); Chloride 106 mmol/L (98-107); Estimated Creatinine Clearance 74 ml/min; Glucose 76 mg/dl (70-99); Potassium 3.6 mmol/L (3.5-5.1); Sodium 131 mmol/L (135-145); eGFR > 60.00
--- NOTE | 2023-11-16 12:12 | W.PN.HOSP.TC ---
Today's Communication/Plan
-
Monitor vital signs and see plan
NPO per GI
Decrease diltiazem to 120 mg daily
Hold Pradaxa for GI scope
Assessment / Plan
Assessment / Plan
General: Well Developed, Well Nourished and No Apparent Distress
HEENT: NormoCephalic, Moist mucous membranes and Atraumatic
Respiratory: Clear
Cardiac: S1/S2 and Regular Rhythm; No Murmur or Rub
GI: Soft, Non Distended, Normal Bowel Sounds and Tender (LLQ )
Rectal: Deferred by Provider
Musculoskeletal: No Clubbing, No Cyanosis and No Edema
Skin: No Rash
Neuro: Nonfocal/grossly intact
Intractable abdominal pain unclear etiology possibly gastritis, given chronic steroid use
-Lipase 300
-EKG without any new changes
-CT abdomen pelvis shows no evidence of acute pathology in the abdomen or pelvis
-Protonix
-Morphine, Dilaudid given
-Zofran given
-IV fluids given, continue
-As needed dicyclomine
-Continue as needed Dilaudid
-Continue Protonix twice daily
-N.p.o. for now
-GI following; plan for possible EGD and cscope; holding pradaxa per GI rec
# Hypokalemia secondary to vomit
improving
# Mild Acute on chronic hyponatremia
monitor
History of hepatitis C status posttreatment
History of alcoholic cirrhosis
Coronary artery disease
-Continue aspirin
-Continue acebutolol
Paroxysmal atrial fibrillation
currently sinus ciro
-hold Pradaxa
-Continue diltiazem; dec to 120mg daily
also on acebutolol
COPD
-Continue inhalers
History of diverticulitis status post partial colonic resection
History of nephrolithiasis
History of CVA
-Continue statin
Chronic pain from arthritis
Uses medical marijuana
Essential hypertension
-Continue hydrochlorothiazide
History of MAC infection
Rheumatoid arthritis
-Continue leflunomide, prednisone
Marijuana user
Former alcohol user
Former smoker
Full code
DVT prophylaxis�SCD's
Anticipated Discharge: > 48 hours
Subjective/Interval History
-
Date of Service: November 16, 2023
denies nausea
Objective Data
-
Labs:
Laboratory Results
11/16/23 11/16/23
05:55 11:15
WBC 6.7
Hgb 13.4
Hct 39.3
Plt Count 151
Sodium 131 L
Potassium 3.6
Chloride 106
Carbon Dioxide 23
BUN 24 H
Creatinine 0.9
Glucose 76
Calcium 8.5
Vital Signs:
Vital Signs
Temp Pulse Resp BP Pulse Ox
98.5 F 61 26 108/64 92
11/16/23 07:04 11/16/23 12:00 11/16/23 12:00 11/16/23 07:00 11/16/23 12:00
[2023-11-16] MEDS: PLAQUENIL PO (12:57)
--- NOTE | 2023-11-16 15:32 | PTCARENOTE ---
Received pt from ER via stretcher, accompanied by ER staff. Pt AAO x3, LYONS well, ambulatory to bed with minimal assistance; denies weakness/dizziness. VSS. On room air- pulse ox 97%, no c/o SOB. Abd soft, rounded, BS decreased, pt aware of NPO
status; no c/o abd discomfort nausea at present. Pt DTV, urinal at bedside. IVF's NSS @ 80 ml/hr infusing via Lt forearm site withot sx of infiltration. Oriented to 4east, currently resting comfortably. Will continue to monitor.
[2023-11-16] MEDS: SYMBICORT 160/4.5 MCG INHALER INH (19:47)
[2023-11-16] MEDS: ZOFRAN 4 MG IV (21:43)
[2023-11-16] MEDS: DILAUDID 0.5 MG IV (21:43)
[2023-11-16] MEDS: LIPITOR 80 MG PO (22:07)
[2023-11-16] MEDS: DELTASONE 7.5 MG PO (22:07)
[2023-11-16] MEDS: SECTRAL PO (22:08)
[2023-11-16] MEDS: PLAQUENIL 200 MG PO (22:19)
[2023-11-16] MEDS: SECTRAL 200 MG PO (22:23)
[2023-11-17] MEDS: NSS 1000 IV (03:42)
--- NOTE | 2023-11-17 03:54 | DOWNTIME ---
There was a [employer] Client [employer] [facility] [employer] Downtime on 11/17/2023 from 0100 to 11/17/2023 at 0322. Downtime documentation of patient's care, including medication administrations, has been reconciled in the electronic record per guidelines. Refer to the
patient's paper chart under the miscellaneous tab to see printed paper medication records and downtime forms.
--- NOTE | 2023-11-17 03:54 | PTCARENOTE ---
Pt aaox3 able to make his needs known. Pt was angry & irritated at change of shift as he is on clear liquid diet, his meds were ordered back again, he will only go for procedure on . Pt was provided with plan of care,emotional support
provided.PRN pain meds were given for abdominal pain & meds for nausea. DRESSAGE INSTRUCTOR farm demonstrator made aware of pt refuses to take 400mg of his sectral PO & prefers to take only 200mg, Pt also refused his scds. Plan of care continued. Call caldera in reach.
[2023-11-17 06:26] LABS: INR 1.11; PT 14.1 Sec (11.4-14.6)
[2023-11-17 06:27] LABS: % Basophils 1.2 % (0-2); % Immature Granulocytes 0.3 % (0-0.5); % Lymphocytes 7.8 % (20.5-51.1); % Monocytes 13.7 % (1.7-9.3); Absolute Basophils 0.1 10^3/uL (0-0.2); Absolute Lymphocytes 0.5 10^3/uL (1.2-3.4); Absolute Monocytes 0.9 10^3/uL (0.1-0.6); Hematocrit 39.4 % (39.0-52.0); Hemoglobin 13.4 g/dL (13.0-18.0); Mean Corpuscular Hgb 34.9 pg (27.0-31.0); Mean Corpuscular Volume 102.6 fL (80.0-94.0); Mean Platelet Volume 12.2 fL (7.4-10.4); Nucleated Red Blood Cells % 0 % (-); Platelet Count 141 10^3/uL (130-400); Red Blood Cell Count 3.84 10^6/uL (4.70-6.10); Red Cell Dist. Width 12.9 % (11.5-14.5); White Blood Cell Count 6.5 10^3/uL (4.8-10.8)
[2023-11-17 07:08] LABS: Blood Urea Nitrogen 17 mg/dl (9-20); Calcium 8.3 mg/dl (8.4-10.2); Carbon Dioxide 22 mmol/L (22-30); Chloride 108 mmol/L (98-107); Estimated Creatinine Clearance 72 ml/min; Glucose 104 mg/dl (70-99); Potassium 4.3 mmol/L (3.5-5.1); Sodium 132 mmol/L (135-145); eGFR > 60.00
[2023-11-17 07:35] VITALS: BP 121/79
[2023-11-17] MEDS: PLAQUENIL 200 MG PO ×2 (08:06→19:55)
[2023-11-17] MEDS: ASPIR LOW (ENTERIC COATED) 81 MG PO (08:06)
[2023-11-17] MEDS: ORETIC 25 MG PO (08:06)
[2023-11-17] MEDS: NSS (PRESERVATIVE FREE) 10 ML IV ×2 (08:06→19:57)
[2023-11-17] MEDS: PROTONIX IV 40 MG IV ×2 (08:06→19:56)
[2023-11-17] MEDS: CARDIZEM CD 120 MG PO (08:07)
[2023-11-17] MEDS: SYMBICORT 160/4.5 MCG INHALER 2 PUFF INH ×2 (09:10→19:50)
--- NOTE | 2023-11-17 11:24 | W.PN.HOSP.TC ---
Today's Communication/Plan
-
Monitor vital signs
see plan
On clears
N.p.o. tomorrow for GI scope
GI to see today
Assessment / Plan
Assessment / Plan
General: Well Developed, Well Nourished and No Apparent Distress
HEENT: NormoCephalic, Moist mucous membranes and Atraumatic
Respiratory: Clear
Cardiac: S1/S2 and Regular Rhythm; No Murmur or Rub
GI: Soft, Non Distended, Normal Bowel Sounds and Tender (LLQ )
Rectal: Deferred by Provider
Musculoskeletal: No Clubbing, No Cyanosis and No Edema
Skin: No Rash
Neuro: Nonfocal/grossly intact
Intractable abdominal pain unclear etiology possibly gastritis, given chronic steroid use
-EKG without any new changes
-CT abdomen pelvis shows no evidence of acute pathology in the abdomen or pelvis
-Protonix
-As needed dicyclomine
-Continue as needed Dilaudid
-Continue Protonix twice daily
-CLD; npo tomorrow for GI scope
-GI following; plan for possible EGD and cscope; holding pradaxa per GI rec
# Hypokalemia
resolved
# Mild Acute on chronic hyponatremia
monitor
History of hepatitis C status posttreatment
History of alcoholic cirrhosis
Coronary artery disease
-Continue aspirin
-Continue acebutolol
Paroxysmal atrial fibrillation
currently sinus ciro
-hold Pradaxa
-Continue diltiazem; dec to 120mg daily
also on acebutolol
COPD
-Continue inhalers
History of diverticulitis status post partial colonic resection
History of nephrolithiasis
History of CVA
-Continue statin
Chronic pain from arthritis
Uses medical marijuana
Essential hypertension
-Continue hydrochlorothiazide
History of MAC infection
Rheumatoid arthritis
-Continue leflunomide, prednisone
Marijuana user
Former alcohol user
Former smoker
Full code
DVT prophylaxis�SCD's
Anticipated Discharge: 24 - 48 hours
Subjective/Interval History
-
Date of Service: November 17, 2023
denies nausea
Objective Data
-
Labs:
Laboratory Results
11/17/23
05:12
WBC 6.5
Hgb 13.4
Hct 39.4
Plt Count 141
PT 14.1
INR 1.11
Sodium 132 L
Potassium 4.3
Chloride 108 H
Carbon Dioxide 22
BUN 17
Creatinine 0.9
Glucose 104 H
Calcium 8.3 L
Vital Signs:
Vital Signs
Temp Pulse Resp BP Pulse Ox
98.4 F 57 16 141/93 94
11/17/23 07:35 11/17/23 09:10 11/17/23 09:10 11/17/23 08:06 11/17/23 09:10
I&O
11/16/23 11/17/23 11/18/23
06:59 06:59 06:59
Intake Total 200 / 200
Output Total 500 / 500
Balance -300 / -300
--- NOTE | 2023-11-17 11:42 | W.PN.GI.CBS2 ---
Today's Communication / Plan
-
CLD, bowel prep today for egd/colon tomorrow
Assessment / Plan
-
Pt is a 68yo with hx hep C prior Epclusa treatment with F2-3 on fibroscan at that time, prior ETOH, afib on Pradaxa, CAD, PAD, COPD, RA on Hydroxychloroquine, Prednisone, and leflunomide, diverticulitis with prior resection, MAC infection with
admission for abdominal pain and vomiting. Pt has CT in September with IV and oral contrast and repeat on admission with IV contrast without significant findings. Labs notable for macrocytosis with normal hbg, Na 129, k 3.4, with normal LFT's and
lipase. Last colonoscopy at 2008 and possible repeat around 2011 with prior diverticulitis episode. No prior EGD. No NSAID use or recent change in medications.
Pt denies abdominal pain o/n. On CLD. Will continue with CLD today, bowel prep today for EGD/colonoscopy tomorrow.
Total Time Spent with Patient (in minutes): 35
Subjective
Subjective
Date of Service: November 17, 2023
denies pain
Objective
Data Reviewed
Laboratory Data:
Laboratory Results
11/17/23 05:12
11/17/23 05:12
Laboratory Results
PT 14.1 Sec (11.4-14.6) 11/17/23 05:12
INR 1.11 11/17/23 05:12
Total Bilirubin 1.1 mg/dl (0.2-1.3) 11/15/23 16:29
AST 49 U/L (17-59) 11/15/23 16:29
ALT 44 U/L (0-50) 11/15/23 16:29
Alkaline Phosphatase 71 U/L (38-126) 11/15/23 16:29
Lipase 300 U/L (23-300) 11/15/23 16:29
Vital Signs and I&O:
Vital Signs
Temp Pulse Resp BP Pulse Ox
98.4 F 57 16 141/93 94
11/17/23 07:35 11/17/23 09:10 11/17/23 09:10 11/17/23 08:06 11/17/23 09:10
I&O
11/16/23 11/17/23 11/18/23
06:59 06:59 06:59
Intake Total 200 / 200
Output Total 500 / 500
Balance -300 / -300
[2023-11-17 15:25] VITALS: BP 120/77
[2023-11-17] MEDS: SPIRIVA RESPIMAT 2.5 MCG 2 PUFF INH (15:48)
--- NOTE | 2023-11-17 16:15 | CM ---
Alert awake oriented patient who lives with his Maria D who lives in a 2 story home with 11 step to enter and 13 steps to bed and bathroom. He is independent in all activities of daily living.He was offered Vn he declined need.
Ulisses VN hx / No SNF history
Pharmacy [facility] [address] Viera
PLAN Home Declined VN
[2023-11-17] MEDS: NULYTELY SOLUTION 2 LITERS PO (17:39)
[2023-11-17] MEDS: LIPITOR 80 MG PO (19:56)
[2023-11-17] MEDS: DELTASONE 7.5 MG PO (19:56)
[2023-11-17] MEDS: SECTRAL 200 MG PO (19:56)
[2023-11-17 23:00] VITALS: BP 118/73
[2023-11-18] VITALS (10 sets, daily range): BP systolic 12–156; BP diastolic 56–92; BMI 21.0
[2023-11-18] MEDS: NULYTELY SOLUTION 2 LITERS PO (05:06)
[2023-11-18 06:18] LABS: % Basophils 1.1 % (0-2); % Immature Granulocytes 0.3 % (0-0.5); % Lymphocytes 10.8 % (20.5-51.1); % Monocytes 12.7 % (1.7-9.3); % Neutrophils 75.1 % (42.2-75.2); Absolute Basophils 0.1 10^3/uL (0-0.2); Absolute Lymphocytes 0.9 10^3/uL (1.2-3.4); Hematocrit 40.7 % (39.0-52.0); Hemoglobin 13.8 g/dL (13.0-18.0); Mean Corp Hgb Conc. 33.9 g/dL (33.0-37.0); Mean Corpuscular Hgb 34.6 pg (27.0-31.0); Mean Platelet Volume 12.1 fL (7.4-10.4); Nucleated Red Blood Cells % 0 % (-); Platelet Count 141 10^3/uL (130-400); Red Blood Cell Count 3.99 10^6/uL (4.70-6.10); Red Cell Dist. Width 12.7 % (11.5-14.5); White Blood Cell Count 7.9 10^3/uL (4.8-10.8)
[2023-11-18 06:36] LABS: Blood Urea Nitrogen 9 mg/dl (9-20); Calcium 8.8 mg/dl (8.4-10.2); Carbon Dioxide 24 mmol/L (22-30); Chloride 106 mmol/L (98-107); Estimated Creatinine Clearance 64 ml/min; Glucose 104 mg/dl (70-99); Potassium 4.4 mmol/L (3.5-5.1); Sodium 138 mmol/L (135-145); eGFR > 60.00
--- NOTE | 2023-11-18 07:14 | PTCARENOTE ---
Pt aaox3 able to make his needs known.Pt completed his bowel prep as ordered this morning. Pt having clear yellow loose stools.Pt denies of any other problems.Call caldera in reach.
[2023-11-18] MEDS: CARDIZEM CD 120 MG PO (07:58)
[2023-11-18] MEDS: ASPIR LOW (ENTERIC COATED) 81 MG PO (07:58)
[2023-11-18] MEDS: PROTONIX IV 40 MG IV ×2 (07:59→20:01)
[2023-11-18] MEDS: PLAQUENIL 200 MG PO ×2 (07:59→20:01)
[2023-11-18] MEDS: NSS (PRESERVATIVE FREE) 10 ML IV ×2 (07:59→20:01)
[2023-11-18] MEDS: ORETIC 25 MG PO (07:59)
[2023-11-18] MEDS: FLUSH (NSS) 1 FLUSH IV (08:00)
[2023-11-18] MEDS: SYMBICORT 160/4.5 MCG INHALER 2 PUFF INH ×2 (09:06→19:52)
--- NOTE | 2023-11-18 11:04 | W.PN.HOSP.TC ---
Today's Communication/Plan
-
Monitor vital signs
see plan
Plan for GI scope today
Restart Pradaxa when okay per GI
Assessment / Plan
Assessment / Plan
General: Well Developed, Well Nourished and No Apparent Distress
HEENT: NormoCephalic, Moist mucous membranes and Atraumatic
Respiratory: Clear
Cardiac: S1/S2 and Regular Rhythm; No Murmur or Rub
GI: Soft, Non Distended, Normal Bowel Sounds
Rectal: Deferred by Provider
Musculoskeletal: No Clubbing, No Cyanosis and No Edema
Skin: No Rash
Neuro: Nonfocal/grossly intact
Intractable abdominal pain unclear etiology possibly gastritis, given chronic steroid use
-EKG without any new changes
-CT abdomen pelvis shows no evidence of acute pathology in the abdomen or pelvis
-Protonix
-As needed dicyclomine
-Continue as needed Dilaudid
-Continue Protonix twice daily
npo for GI scope
-GI following; plan for possible EGD and cscope; holding pradaxa per GI rec
# Hypokalemia
resolved
# Mild Acute on chronic hyponatremia
resolved
History of hepatitis C status posttreatment
History of alcoholic cirrhosis
Coronary artery disease
-Continue aspirin
-Continue acebutolol
Paroxysmal atrial fibrillation
currently sinus ciro
-hold Pradaxa
-Continue diltiazem; dec to 120mg daily
also on acebutolol
COPD
-Continue inhalers
History of diverticulitis status post partial colonic resection
History of nephrolithiasis
History of CVA
-Continue statin
Chronic pain from arthritis
Uses medical marijuana
Essential hypertension
-Continue hydrochlorothiazide
History of MAC infection
Rheumatoid arthritis
-Continue leflunomide, prednisone
Marijuana user
Former alcohol user
Former smoker
Full code
DVT prophylaxis�SCD's
Anticipated Discharge: Within 24 hours
Subjective/Interval History
-
Date of Service: November 18, 2023
denies pain
Objective Data
-
Labs:
Laboratory Results
11/18/23
05:17
WBC 7.9
Hgb 13.8
Hct 40.7
Plt Count 141
Sodium 138
Potassium 4.4
Chloride 106
Carbon Dioxide 24
BUN 9
Creatinine 1.0
Glucose 104 H
Calcium 8.8
Vital Signs:
Vital Signs
Temp Pulse Resp BP Pulse Ox
98 F 55 16 129/87 95
11/18/23 07:00 11/18/23 07:59 11/18/23 07:44 11/18/23 07:59 11/18/23 07:57
I&O
11/17/23 11/18/23 11/19/23
06:59 06:59 06:59
Intake Total 200 / 200 2039
Output Total 500 / 500
Balance -300 / -300 2039
--- NOTE | 2023-11-18 11:37 | CM ---
For Gi scope.
Spoke with patient in room.
He said at dc he does not want VN .
His Maria D will drive him home.
PLAN Home Declined VN
--- NOTE | 2023-11-18 13:30 | W.PN.UPDATE ---
Update Note
Progress Note Update
egd was unremarkable, colonoscopy showed small polyp, diverticulosis and hemorrhoids. reg diet. GI will s/o, pls call with questions.
--- NOTE | 2023-11-18 14:20 | SUR.PHASEI ---
comfortable post EGD and colonoscopy, awake and alert. spoke with Dr Hahn - will transport with transport team back to [facility]
--- NOTE | 2023-11-18 14:37 | PTCARENOTE ---
Received pt from PACU s/p GI lab via stretcher, accompanied by volunteer. Pt AAO x3, LYONS well, ambulatory to bed with minimal assistance; denies weakness/dizziness. VSS. On room air- pulse ox 95%, no c/o SOB. Abd soft, rounded, BS (+);
decreased; pt to start reg diet; denies abd discomfort. Pt DTV post-procedure; urinal at bedside. Resting in bed at present, no c/o. Will continue to monitor.
[2023-11-18] MEDS: SPIRIVA RESPIMAT 2.5 MCG 2 PUFF INH (15:31)
--- NOTE | 2023-11-18 16:11 | PTCARENOTE ---
Pt AAO x3, LYONS well, ambulatory in room/to BR; no c/o weakness/dizziness. VSS. On room air- pulse ox 97%, no SOB noted. Abd soft, rounded, [place] reg diet. Voiding in BR without difficulty. Resting in bed at present, no c/o. Will continue to
monitor.
[2023-11-18] MEDS: LIPITOR 80 MG PO (20:01)
[2023-11-18] MEDS: DELTASONE 7.5 MG PO (20:02)
[2023-11-18] MEDS: SECTRAL 200 MG PO (20:03)
[2023-11-18] MEDS: PRADAXA 150 MG PO (20:05)
[2023-11-19 06:17] LABS: % Immature Granulocytes 0.4 % (0-0.5); % Lymphocytes 7.9 % (20.5-51.1); % Monocytes 12.8 % (1.7-9.3); % Neutrophils 77.9 % (42.2-75.2); Absolute Basophils 0.1 10^3/uL (0-0.2); Absolute Lymphocytes 0.6 10^3/uL (1.2-3.4); Absolute Monocytes 0.9 10^3/uL (0.1-0.6); Absolute Neutrophils 5.6 10^3/uL (1.4-6.5); Hematocrit 40.1 % (39.0-52.0); Hemoglobin 13.4 g/dL (13.0-18.0); Mean Corp Hgb Conc. 33.4 g/dL (33.0-37.0); Mean Corpuscular Hgb 35.1 pg (27.0-31.0); Nucleated Red Blood Cells % 0 % (-); Platelet Count 133 10^3/uL (130-400); Red Blood Cell Count 3.82 10^6/uL (4.70-6.10); Red Cell Dist. Width 12.9 % (11.5-14.5); White Blood Cell Count 7.2 10^3/uL (4.8-10.8)
[2023-11-19 06:43] LABS: Blood Urea Nitrogen 13 mg/dl (9-20); Chloride 102 mmol/L (98-107); Estimated Creatinine Clearance 54 ml/min; Glucose 102 mg/dl (70-99); Potassium 4.7 mmol/L (3.5-5.1); Sodium 136 mmol/L (135-145); eGFR > 60.00
[2023-11-19 06:53] LABS: Carbon Dioxide 26 mmol/L (22-30)
[2023-11-19 07:00] VITALS: BP 147/87
[2023-11-19] MEDS: SYMBICORT 160/4.5 MCG INHALER 2 PUFF INH (07:32)
[2023-11-19] MEDS: CARDIZEM CD 120 MG PO (08:04)
[2023-11-19] MEDS: ASPIR LOW (ENTERIC COATED) 81 MG PO (08:04)
[2023-11-19] MEDS: NSS (PRESERVATIVE FREE) 10 ML IV (08:09)
[2023-11-19] MEDS: PROTONIX IV 40 MG IV (08:09)
[2023-11-19] MEDS: PLAQUENIL 200 MG PO (08:11)
[2023-11-19] MEDS: ORETIC 25 MG PO (08:11)
[2023-11-19] MEDS: PRADAXA 150 MG PO (08:11)
--- NOTE | 2023-11-19 10:33 | W.PN.HOSP.TC ---
Today's Communication/Plan
-
Monitor vitals
See plan
Discharge today
Time of discharge 37 minutes
Assessment / Plan
Assessment / Plan
General: Well Developed, Well Nourished and No Apparent Distress
HEENT: NormoCephalic, Moist mucous membranes and Atraumatic
Respiratory: Clear
Cardiac: S1/S2 and Regular Rhythm; No Murmur or Rub
GI: Soft, Non Distended, Normal Bowel Sounds
Rectal: Deferred by Provider
Musculoskeletal: No Clubbing, No Cyanosis and No Edema
Skin: No Rash
Neuro: Nonfocal/grossly intact
Intractable abdominal pain unclear etiology possibly gastritis, given chronic steroid use
-EKG without any new changes
-CT abdomen pelvis shows no evidence of acute pathology in the abdomen or pelvis
-Protonix
pain improving
-Continue Protonix twice daily
Status post EGD and colonoscopy. Colonoscopy showed small polyp, diverticulosis and hemorrhoids. Patient is currently tolerating regular diet. Endoscopy consistent with erythematous mucosa in the gastric body. Patient to follow-up with GI
outpatient.
-Pradaxa resumed
# Hypokalemia
resolved
# Mild Acute on chronic hyponatremia
resolved
History of hepatitis C status posttreatment
History of alcoholic cirrhosis
Coronary artery disease
-Continue aspirin
-Continue acebutolol
Paroxysmal atrial fibrillation
currently sinus ciro
-hold Pradaxa
-Continue diltiazem; dec to 120mg daily
also on acebutolol
COPD
-Continue inhalers
History of diverticulitis status post partial colonic resection
History of nephrolithiasis
History of CVA
-Continue statin
Chronic pain from arthritis
Uses medical marijuana
Essential hypertension
-Continue hydrochlorothiazide
History of MAC infection
Rheumatoid arthritis
-Continue leflunomide, prednisone
Marijuana user
Former alcohol user
Former smoker
Full code
DVT prophylaxis�SCD's
Anticipated Discharge: Today
Subjective/Interval History
-
Date of Service: November 19, 2023
Denies pain
Objective Data
-
Labs:
Laboratory Results
11/19/23
05:01
WBC 7.2
Hgb 13.4
Hct 40.1
Plt Count 133
Sodium 136
Potassium 4.7
Chloride 102
Carbon Dioxide 26
BUN 13
Creatinine 1.2
Glucose 102 H
Calcium 9.0
Vital Signs:
Vital Signs
Temp Pulse Resp BP Pulse Ox
98.1 F 60 16 147/87 97
11/19/23 07:00 11/19/23 08:04 11/19/23 07:36 11/19/23 07:00 11/19/23 07:36
I&O
11/18/23 11/19/23 11/20/23
06:59 06:59 06:59
Intake Total 2039 730 / 730
Output Total 280 / 280
Balance 2039 450 / 450
--- NOTE | 2023-11-19 10:38 | W.DCSUMMARY ---
Addendum entered and electronically signed by Braydon Ballard MD 11/19/23 14:02:
Patient is aware that his diltiazem is 120 mg daily instead of twice daily
Original Note:
Discharge Summary
Discharge Data
Date of Admission: 11/16/23
Date of Discharge: 11/19/23
-
Pending Results: Yes
Hospital Course
68-year-old male with past medical history of hepatitis C, alcohol cirrhosis, CAD, paroxysmal atrial fibrillation, COPD, diverticulitis, nephrolithiasis, CVA, arthritis, essential hypertension, rheumatoid arthritis came to the hospital with
intractable abdominal pain along with nausea and vomiting. Patient was seen by gastroenterology throughout hospitalization and was taken for endoscopy and colonoscopy. Endoscopy showed erythematous mucosa in the gastric body. Colonoscopy was
consistent with diverticulosis and hemorrhoids. CT scan was also done which did not show any signs of acute pathology in the abdomen or pelvis. Prior to discharge patient was able to tolerate regular diet. It was determined that patient symptoms
could likely be from possible gastritis. Once patient symptoms improved, he was then discharged home with instructions to follow-up with all the physicians outpatient.
Discharge Plan
-
Patient Disposition: Home (Routine Discharge)
Discharge Diagnosis/Procedures: Abdominal pain, nausea, vomiting suspect secondary to gastritis
Diet: As tolerated
Activity: As tolerated
Driving Restrictions: As prior to admission
Bathing Restrictions: None
Referrals:
Demetrius Viera PA-C [Family Provider] - in less than 1 week
Garret Hahn MD [Active] -
Prescriptions:
Continued
hydroxychloroquine 200 MG tablet
200 mg PO BID
prednisone 5 MG tablet
7.5 mg PO DAILY@1930
tiotropium bromide [Spiriva with HandiHaler] 18 MCG capsule, w/inhalation device
1 puff inhalation R DAILY@1600
dabigatran etexilate [Pradaxa] 150 MG capsule
150 mg PO BID Qty: 60 2RF
diltiazem HCl 120 MG capsule,extended release 24hr
120 mg PO BID Qty: 60 0RF
acebutolol 400 mg Capsule
200 mg PO DAILY@1929
aspirin 81 mg Tablet,Delayed Release (Dr/Ec)
81 mg PO DAILY
leflunomide 20 mg Tablet
20 mg PO DAILY
hydrochlorothiazide 25 mg Tablet
25 mg PO DAILY
fluticasone furoate-vilanterol [Breo Ellipta] 200-25 mcg/dose Blister With Device
1 inh INHALATION R DAILY@1599
atorvastatin 80 MG tablet
80 mg PO DAILY@1929
ondansetron 4 mg tablet,disintegrating
4 mg PO Q8H PRN (Reason: nausea and vomiting) Qty: 10 0RF
Changed
pantoprazole [Protonix] 40 mg tablet,delayed release (DR/EC)
40 mg PO BID Qty: 0 0RF
Discharge Orders:
Discharge Patient (As Directed); Ordered 11/19/23
Ordered By: Braydon Ballard
Discharge Date and Time
Discharge Date/Time: 11/19/23 11:25
Print Language: FINNISH
--- NOTE | 2023-11-19 10:57 | CM ---
MD entered order for discharge.
PT said at dc he does not want VN .
His Maria D will drive him home.
PLAN Home Declined VN
--- NOTE | 2023-11-19 11:43 | PTCARENOTE ---
IV discontinued. Discharge paperwork printed and reviewed with patient and family member who verbalized understanding. Pt transported off the floor via wheelchair with all belongings from the room.
== END 2023-11-19 11:25 | disposition home or self-care (01) | DRG 392 ==
LOC: 4 EAST ACU 16:32
PROVIDERS: Nurse Practitioner Adult Health; ADMITTING PHYSICIAN Hospitalist; ATTENDING PHYSICIAN Internal Medicine; CONSULT PHYSICIAN Internal Medicine Gastroenterology; EMERGENCY PHYSICIAN Emergency Medicine; FAMILY PHYSICIAN Physician Assistant Medical
PROC: 0DBM8ZX Excision of Descending Colon, Via Natural or Artificial Opening Endoscopic, Diagnostic (ICD-10-PCS; 2023-11-16)
PROC: 0DB68ZX Excision of Stomach, Via Natural or Artificial Opening Endoscopic, Diagnostic (ICD-10-PCS; 2023-11-18)
DX: K29.70 Gastritis, unspecified, without bleeding (principal); E87.1 Hypo-osmolality and hyponatremia; I47.10 Supraventricular tachycardia, unspecified; K57.30 Diverticulosis of large intestine without perforation or abscess without bleeding; D12.4 Benign neoplasm of descending colon; K64.1 Second degree hemorrhoids; I48.0 Paroxysmal atrial fibrillation; E87.6 Hypokalemia
CPT/HCPCS: 88305; 74177; 80048; 80053; 81003; 83690; 84484; 85025; 85610; 88342; 93005; 94640; 96361; 96374; 96375; 96376; 99285; Q9967

== ENCOUNTER 2023-12-29 19:14 | Inpatient (IN) | payer OTHER, SELFPAY ==
[2023-12-29] VITALS (7 sets, daily range): BP systolic 115–131; BP diastolic 56–83; BMI 20.5
[2023-12-29 14:18] LABS: % Basophils 0.4 % (0-2); % Eosinophils 0.5 % (0-6); % Immature Granulocytes 0.6 % (0-0.5); % Lymphocytes 5.4 % (20.5-51.1); % Monocytes 9.3 % (1.7-9.3); % Neutrophils 83.8 % (42.2-75.2); Absolute Immature Granulocytes 0.1 10^3/uL (0-0.05); Absolute Lymphocytes 0.4 10^3/uL (1.2-3.4); Absolute Monocytes 0.7 10^3/uL (0.1-0.6); Absolute Neutrophils 6.6 10^3/uL (1.4-6.5); Hematocrit 40.7 % (39.0-52.0); Hemoglobin 14.3 g/dL (13.0-18.0); Mean Corp Hgb Conc. 35.1 g/dL (33.0-37.0); Mean Corpuscular Hgb 34.8 pg (27.0-31.0); Mean Platelet Volume 11.5 fL (7.4-10.4); Nucleated Red Blood Cells % 0 % (-); Platelet Count 160 10^3/uL (130-400); Red Blood Cell Count 4.11 10^6/uL (4.70-6.10); White Blood Cell Count 7.9 10^3/uL (4.8-10.8)
[2023-12-29 14:23] LABS: Urine Albumin Trace (Neg - Trace); Urine Bilirubin 1+ (Negative); Urine Character Clear (Clear); Urine Color Yellow; Urine Glucose Negative (Negative); Urine Ketone 1+ (Negative); Urine Leukocyte Trace (Negative); Urine Nitrite Negative (Negative); Urine Occult Blood 1+ (Negative); Urine Specific Gravity 1.025 (<1.030); Urine Urobilinogen 2+ (Neg - 1+)
[2023-12-29 14:26] LABS: ALT (SGPT) 36 U/L (0-50); AST (SGOT) 58 U/L (17-59); Albumin 3.5 g/dl (3.5-5.0); Alkaline Phosphatase 72 U/L (38-126); Blood Urea Nitrogen 35 mg/dl (9-20); Calcium 8.5 mg/dl (8.4-10.2); Carbon Dioxide 26 mmol/L (22-30); Chloride 91 mmol/L (98-107); Glucose 98 mg/dl (70-99); Potassium 3.3 mmol/L (3.5-5.1); Sodium 125 mmol/L (135-145); Total Bilirubin 1.1 mg/dl (0.2-1.3); Total Protein 6.3 g/dl (6.3-8.2); eGFR > 60.00
[2023-12-29 14:45] LABS: Urine Squamous Cell >30 /LPF (Few)
[2023-12-29 14:46] LABS: Urine Red Blood Cell 0-2 /HPF (0-2)
[2023-12-29 14:47] LABS: Urine Bacteria Moderate (Negative); Urine Mucus Moderate
[2023-12-29 14:53] LABS: Troponin I 0.042 ng/ml
--- NOTE | 2023-12-29 16:08 | ED.GENMED ---
History of Present Illness
General
Chief Complaint: Breathing Problem
Source: patient, records and family
Exam Limitations: none
Time Seen by Provider: 12/29/23 15:48
Travel History
Have you had any contact with someone who has COVID-19?: No
Do you have any symptoms of coronavirus? Fever > 100 degrees, chills, cough, shortness of breath, sore throat, loss of taste or smell, muscle aches, or headache?: No
History of Present Illness
History of Present Illness:
68-year-old male COPD no longer smoking gastritis recently admitted with workup for that thought to be due to his chronic steroids which she takes for RA currently on 7.5 mg a day 2 to 3 days of cough congestion low-grade fever increased sputum
vomiting general malaise, saw his PCP referred to the ER for evaluation
Past History
Past History
ED Past Medical History: CAD, COPD, GERD and Other (Liver cirrhosis, GERD)
Social History
Tobacco: Former smoker
Alcohol: Occasional
Drug: None
Personal:
Living: with family
Family History
Family History: Diabetes, Hypertension, CAD and Other (Hyperlipidemia)
Review of Systems
Review of Systems
All Other Systems: Not applicable
Constitutional: Reports fever and fatigue; Denies chills
EENT: Reports no symptoms
Respiratory: Reports cough and trouble breathing
Phy Exam
Physical Exam
Physical Exam:
Physical Exam
General: 68 male moderate respiratory
Neck: supple.
Heart: Tachycardia
Lungs: Wheezing right greater than
Abdomen: Not tender
Neuro: alert and oriented. no focal neurological deficits
Skin: no rash
Psychiatric: well kept. interactive and cooperative
Extremities: no edema. no calf tenderness
Scores
Heart Failure Risk
Heart Failure Risk Score: Not Applicable
Course
Orders/Labs/Results
Orders:
Orders
12/29/23 Breakfast
Sodium, 2 Gram
At Your Request: Full Participation
Fluid Restriction: 1200 mL/day (40 oz)
12/29/23 13:42
Electrocardiogram (*1) Urgent
Reason for Study: Other
Other Reason for Exam: Respiratory Distress
EKG- Treatment ONCE
12/29/23 13:51
Urinalysis Reflex To Culture Urgent
Date Specimen was Collected: 12/29/23
Time Specimen was Collected: 13:44
Urine Microscopic Reflex Cult Urgent
Urine Culture Urgent
JOSELINE Source: U
Specimen Description:
Date Specimen was Collected: 12/29/23
Time Specimen was Collected: 13:44
12/29/23 13:54
Complete Blood Count/With Diff Urgent
Comprehensive Metabolic Panel Urgent
Magnesium Urgent
Comment: ADD ON
Serum Osmolality Urgent
Troponin I Urgent
12/29/23 16:02
CR Chest - 2 Views Urgent
Comment:
Reason For Exam: sob
12/29/23 16:06
0.9% Sodium Chloride 1000 ml [Nss] 1,000 ml IV BOLUS
Dexamethasone Sod Phosphate [Decadron] 10 mg IV NOW STA
Ipratropium/Albuterol Sulfate [Duoneb] 3 ml INH R NOW STA
12/29/23 16:11
Potassium Chloride [KCl] 40 meq PO NOW STA
12/29/23 16:24
Blood Culture Q30M
JOSELINE Source: Blood/Venous
Specimen Description:
Blood Culture Q30M
JOSELINE Source: Blood/Venous
Specimen Description:
12/29/23 17:58
CefTRIAXone [Rocephin] 1,000 mg IV NOW STA
12/29/23 18:02
Albuterol Nebs [Ventolin Nebules] 2.5 mg INH R NOW STA
12/29/23 18:11
COVID-19 Antigen Urgent
Source: Nasal Swab
Influenza A+B Rapid Molecular Urgent
JOSELINE Source: Nasal Swab
Specimen Description:
12/29/23 18:28
Add On- LAB Routine
Tests Added?: serum osm
12/29/23 18:45
0.9% Sodium Chloride 1000 ml [Nss] 1,000 ml IV 70 mls/hr
12/29/23 18:46
Admit/Transfer Patient As Directed
Co-Sign Provider:
Level of Care: Inpatient admission
Assign to:: Telemetry
Physician / Group: Rossy
Diagnosis: COPD Exac/Pneumonia
Reason for Telemetry: Arrhythmia
Date to Stop Telemetry: 01/01/24
Time to Stop Telemetry: 11:00
Reason for Hospitalization: IV abx
Expected length of stay greater than two midnights?: Yes
ELOS- Estimated Length of Stay in days: 3
I certify the patient meets the requirements for IP care: Yes
12/29/23 18:50
Code Status As Directed
Resuscitation Status: Full Code
12/29/23 18:52
Add On- LAB Routine
Tests Added?: magnesium
12/29/23 19:23
Sputum Culture [Respiratory Culture/Gram Stain] Routine
JOSELINE Source: Sputum
Specimen Description:
Date Specimen was Collected: 12/29/23
Time Specimen was Collected: 19:18
12/29/23 19:52
Acetaminophen [Tylenol] 650 mg PO Q4HPRN PRN
Ipratropium/Albuterol Sulfate [Duoneb] 3 ml INH R Q4HPRN PRN
12/29/23 19:52
Activity As Directed
Activity Level: Out of Bed-Early Mobility
With Assistance
I&O [Intake/ Output] As Directed
Frequency: q12h
Vital Signs As Directed
Frequency: Per unit guidelines
Weight As Directed
Frequency: Daily
12/29/23 20:00
Acebutolol [Sectral] 400 mg PO BID
Budesonide [Pulmicort] 0.5 mg INH R BID
Dabigatran Etexilate Mesylate [Pradaxa] 150 mg PO BID
Doxycycline [Vibramycin] 100 mg PO Q12
Guaifenesin [Mucinex] 600 mg PO Q12
Hydroxychloroquine [Plaquenil] 200 mg PO BID
Ipratropium/Albuterol Sulfate [Duoneb] 3 ml INH R QID
12/29/23 20:50
Troponin I Q6H
12/29/23 21:09
Osmolality, Random Urine Routine
Date Specimen was Collected: 12/29/23
Time Specimen was Collected: 21:04
Urine Sodium Routine
Date Specimen was Collected: 12/29/23
Time Specimen was Collected: 21:04
12/30/23 02:00
Troponin I Q6H
12/30/23 06:00
ECG [Electrocardiogram (*1)] IN AM
Reason for Study: QTc Monitoring
Basic Metabolic Panel IN AM
Complete Blood Count/No Diff IN AM
Magnesium IN AM
TSH Reflex To Free T4 IN AM
12/30/23 08:00
Aspirin Low Dose EC [Aspir Low (Enteric Coated)] 81 mg PO DAILY
Dexamethasone Sod Phosphate [Decadron] 6 mg IV Q12H
Diltiazem Extended Release [Cardizem Cd] 120 mg PO DAILY
leflunomide 20 mg PO DAILY
12/30/23 18:00
Atorvastatin [Lipitor] 80 mg PO QPM
CefTRIAXone [Rocephin] 1,000 mg IV Q24H
01/01/24 11:00
DC Protocol for Telemetry ONCE
Abnormal Lab Results
12/29/23 12/29/23
13:51 13:54
RBC 4.11 L 10^6/uL
(4.70-6.10)
MCV 99.0 H fL
(80.0-94.0)
MCH 34.8 H pg
(27.0-31.0)
MPV 11.5 H fL
(7.4-10.4)
Abs Immat Gran (auto) 0.1 H 10^3/uL
(0-0.05)
Absolute Neuts (auto) 6.6 H 10^3/uL
(1.4-6.5)
Absolute Lymphs (auto) 0.4 L 10^3/uL
(1.2-3.4)
Absolute Monos (auto) 0.7 H 10^3/uL
(0.1-0.6)
Immature Gran % 0.6 H %
(0-0.5)
Neutrophils % 83.8 H %
(42.2-75.2)
Lymphocytes % 5.4 L %
(20.5-51.1)
Sodium 125 L mmol/L
(135-145)
Potassium 3.3 L mmol/L
(3.5-5.1)
Chloride 91 L mmol/L
(98-107)
BUN 35 H mg/dl
(9-20)
Troponin I 0.042 H* ng/ml
Urine Ketones 1+ A
(Negative)
Ur Occult Blood Reflex 1+ A
(Negative)
Urine Bilirubin 1+ A
(Negative)
Urine Urobilinogen 2+ A
(Neg - 1+)
Leukocyte Esterase Rfl Trace A
(Negative)
Urine Bacteria (Reflex) Moderate A
(Negative)
12/29/23 13:54
12/29/23 13:54
Vital Signs
Initial and Last Documented VS:
Initial Vital Signs
Temp Pulse Resp BP Pulse Ox
99.8 F 73 18 126/83 93
12/29/23 13:39 12/29/23 13:39 12/29/23 13:39 12/29/23 13:39 12/29/23 13:39
Last Documented Vital Signs
Temp Pulse Resp BP Pulse Ox
99.4 F 62 18 122/71 95
12/29/23 19:27 12/29/23 21:06 12/29/23 21:06 12/29/23 19:27 12/29/23 21:06
MDM/Problems Addressed
Differential Diagnosis Includes:
COPD pneumonia bronchitis heart failure dehydration electrolyte abnormality
MDM/Problems Addressed:
Cough fatigue shortness of breath
Chronic conditions affecting care:
Chronic steroid use COPD reflux
Chronic conditions affecting care: COPD
Acute Exacerbation and/or Progression of Chronic Illness: COPD
*Radiology
Radiology exam reviewed: radiology read reviewed
*Pulse Oximetry
Patient hypoxic: yes
Comment: 89
*EKG
Interpreted by ED Provider?: Yes
Interpretation: abnormal
Comparison EKG: no comparison EKG present
Heart Rate: 78
Rate: normal
Rhythm: sinus
Ischemia: non-specific ST changes
*Civil Engineering Designer Interpretation
Rate: normal
Interpretation: normal
Heart Rate: 78
*Critical Care Note
Total Time (30-74mins, 75-104mins- exclusive of procedures): Not Applicable
Update Note
Update Note:
Update 6 PM patient chest x-ray noted he is tachypneic, hypoxic to 89% on room air states he feels a little bit better after DuoNeb, electrolytes are noted will place on oxygen, start antibiotics, will require admission patient and family updated on
plan of care they are in agreement
ED Attending Note
-
Portions of this chart may have been created with voice recognition software.� Occasional wrong word or��sound alike� substitutions may have occurred due to the inherent limitations of voice recognition software.
Discharge Plan
Departure
Patient Disposition: Admit
Date of Disposition: 12/29/23
Time of Disposition: 18:03
Admit to: Med/Surg
Presentation/result/management discussed w/ accepting MD/DO: Hospitalist
Patient with high blood pressure during this ER visit?: No
Condition: Fair
Discharge Problem:
Hypokalemia, Hyponatremia, COPD (chronic obstructive pulmonary disease)
Interventions
Interventions:
*Risk Screen - Suicide Last Done: 12/29/23 13:39
*General Assessment Last Done: 12/29/23 13:39
*Neglect/Abuse Screening Last Done: 12/29/23 13:39
ED- Fall Risk Assessment Last Done: 12/29/23 20:23
*ED COVID-19 Vaccine History Last Done: 12/29/23 13:39
*Nursing Disposition Last Done: 12/29/23 20:23
ED- Cardiac Assessment Last Done: 12/29/23 16:30
ED- Pulmonary Assessment Last Done: 12/29/23 16:30
Discharge Date and Time
Discharge Date/Time: 12/29/23 20:24
[2023-12-29] MEDS: DECADRON 10 MG IV (16:09)
[2023-12-29] MEDS: DUONEB 3 ML INH ×2 (16:09→21:01)
[2023-12-29] MEDS: NSS 1000 IV ×2 (16:20→19:22)
[2023-12-29] MEDS: KCL 40 MEQ PO (16:44)
[2023-12-29] MEDS: VENTOLIN NEBULES 2.5 MG INH (18:11)
[2023-12-29] MEDS: ROCEPHIN 1000 MG IV (18:11)
--- NOTE | 2023-12-29 18:27 | HPS.HSE ---
Family Physician
-
Family Physician: Demetrius Viera
Chief Complaint
-
Cough and Shortness of Breath
History of Present Illness
This is a 68 year old male former smoker, with a past medical history of COPD, CVA, GERD who presents to the ED for worsening cough and congestion x 3 days. He reports cough is productive of yellow phlegm. He also admits to increase dyspnea and
wheezing for which he has been using his prn albuterol '10-15x/ day'. He admits to associated pleuritic chest pain when he takes a deep breath. He admits to a recent sick contact from his granddaughter with unspecified upper respiratory infection,
which the family at bedside says spread through the family. He has also had sweats and chills, but denies taking a temperature at home.
Medical History
Past Medical History
Past Medical History: Reports Other
Additional Past Medical History:
CVA
Paroxysmal Atrial Fibrillation
SVT s/p Post-Ablation
Essential Hypertension
Hyperlipidemia
COPD
Rheumatoid Arthritis
MAC Infection
Liver Cirrhosis
Hepatitis C
BPH
GERD
Past Surgical History: Reports Other
Additional Past Surgical History:
Sigmoid Resection
Social History
Tobacco: Former Smoker (Quit in 2019)
Alcohol: None
Family History
Family History: Not pertinent
Allergies / Home Medications
Allergies reflects when Allergies were last updated in [facility].
Home Medications with original date entered in [facility]
Allergy/Medication List:
Allergies
Allergy/AdvReac Type Severity Reaction Status Date / Time
No Known Allergies Allergy Verified 12/29/23 13:39
Home Medications
hydroxychloroquine 200 mg tablet 200 mg PO BID rheumatoid arthritis 06/05/20
prednisone 5 mg tablet 7.5 mg PO DAILY@1930 Anti-inflammatory 07/13/20
tiotropium bromide 18 mcg capsule with inhalation device (Spiriva with HandiHaler) 1 puff inhalation R DAILY@1600 Lung/breathing issues 07/13/20
dabigatran etexilate 150 mg capsule (Pradaxa) 150 mg PO BID #60 caps 07/16/20
acebutolol 400 mg capsule 400 mg PO BID Blood Pressure 10/10/23
aspirin 81 mg tablet,delayed release 81 mg PO DAILY Blood Clot Prevention/Tx 10/10/23
atorvastatin 80 mg tablet 80 mg PO QPM High Cholesterol 10/10/23
fluticasone furoate 200 mcg-vilanterol 25 mcg/dose inhalation powder (Breo Ellipta) 1 inh inhalation R DAILY@1600 Lung/Breathing Issues 10/10/23
hydrochlorothiazide 25 mg tablet 25 mg PO DAILY Fluid Retention/Swelling 10/10/23
leflunomide 20 mg tablet 20 mg PO DAILY rheumatoid arthritis 10/10/23
diltiazem HCl 120 mg capsule,extended release 24 hr 120 mg PO DAILY 12/29/23
ondansetron 4 mg disintegrating tablet 4 mg PO Q8HPRN PRN nausea and vomiting 12/29/23
pantoprazole 40 mg tablet,delayed release (Protonix) 40 mg PO BIDPRN PRN gerd 12/29/23
lfbjhxitrqzph-WY-fysdsckcyka 5 mg-10 mg-100 mg/5 mL oral liquid 10 ml PO Q4HPRN PRN cough 12/29/23
Review of Systems
-
A 12 point ROS was completed and negative except as noted: Yes
Constitutional: Reports Chills
Respiratory: Reports Cough and Trouble Breathing
Cardiac: Reports Chest Pain
Abdomen/GI: Reports Anorexia
Physical Exam
Vital Signs
Vital Signs
Temp Pulse Resp BP Pulse Ox
99.8 F 70 16 131/75 93
12/29/23 13:39 12/29/23 16:45 12/29/23 16:45 12/29/23 16:24 12/29/23 16:45
Physical Exam
General: Comfortable and Conversant
HEENT: NormoCephalic, Anicteric and Oxygen (Nasal Cannula)
Respiratory: Wheezes (Diffuse Exp Wheeze) and Decreased Breath Sounds (Bilateral Bases)
Cardiac: S1/S2 and Regular Rhythm
GI: Soft and Non Tender
Rectal: Deferred by Provider
Musculoskeletal: No Clubbing, No Cyanosis and No Edema
Skin: Warm and Dry
Neuro: Awake, Alert, Oriented and Nonfocal/grossly intact
Psych: Calm
Laboratory Results
-
12/29/23 13:54
12/29/23 13:54
Laboratory Results
Total Bilirubin 1.1 mg/dl (0.2-1.3) 12/29/23 13:54
AST 58 U/L (17-59) 12/29/23 13:54
ALT 36 U/L (0-50) 12/29/23 13:54
Alkaline Phosphatase 72 U/L (38-126) 12/29/23 13:54
Troponin I 0.042 ng/ml H* 12/29/23 13:54
Data Reviewed
-
Lab Data: Labs Reviewed by me
Impression/Plan
-
Acute COPD Exacerbation
-Continue Decadron 6mg Q12h
-Continue Duoneb QID and PRN
-Continue Pulmicort neb
Community Acquired Pneumonia
-Continue ceftriaxone and doxycycline
-Check sputum culture
-Continue Mucinex
-Encourage use of incentive spirometer and Acapella Device
Elevated Troponin
-Continue to trend
-Monitor on Telemetry
Acute on Chronic Hyponatremia
-Check urine sodium, and urine osmo
-Hold HCTZ
-Give IVFs overnight
-Recheck sodium in AM
Hypokalemia
-Replace potassium
-Check magnesium
-Recheck labs in AM
Prolonged QT
-Patient takes hydroxychloroquine as outpatient for rheumatoid arthritis
-Avoid other QT prolonging medications
-Recheck ECG in AM
-Monitor on Telemetry
Hx CVA
-Continue Aspirin
Paroxysmal Atrial Fibrillation
-Continue Pradaxa for anticoagulation
-Continue Diltiazem for rate control
Essential Hypertension
-Continue Acebutolol
Hyperlipidemia
-Continue atorvastatin
Rheumatoid Arthritis
-Continue hydroxychloroquine and leflunomide
-Patient is maintained on chronic prednisone as outpatient
GERD
-Continue Protonix
DVT proph: Pradaxa
Code Status: Full Code
--- NOTE | 2023-12-29 18:29 | W.PN.UPDATE ---
Update Note
Progress Note Update
I saw and examined the patient.
The [facility] H&P note was reviewed and I agree with the note.
Billing purposes
Comment:
68-year-old male with past medical history of hepatitis C, alcohol cirrhosis, CAD, paroxysmal atrial fibrillation, COPD, diverticulitis, nephrolithiasis, CVA, arthritis, essential hypertension, rheumatoid arthritis came to the hospital with
weakness, cough and, nasal congestion and low-grade fever with an increase sputum production. Patient with sick contact with granddaughter who had a fever and subsequently afterwards multiple family member with similar symptoms cough, congestion
and fevers. States of severe productive sputum and severe cough. Persistent cough leading to vomiting. Severely decreased appetite.
Gen: in nad, able to speak in complete sentences, to self, chronically ill
HEENT neck is supple trach is midline
Cardiac S1-S2
Lungs bilateral diffuse expiratory wheezing with decreased aeration
Abdomen positive bowel sounds soft nontender nondistended
extremities no edema
Neuro nonfocal grossly intact
Psych pleasant, talkative
Impression
Acute COPD exacerbation
Start patient on standing and as needed bronchodilators
Start patient on Decadron 6 every 12
Monitor on telemetry
Keep O2 sats greater than 88%
Recent viral infection exposure now leading to secondary bacterial pneumonia
Start patient on ceftriaxone and doxycycline
Sputum sample
Acute on chronic hyponatremia
Likely secondary to HCTZ
Hold HCTZ
Start patient on gentle IV fluids with normal saline @70cc/hr
Trend BMP
Check urine studies
Hypokalemia
Replete potassium
Troponin elevation
Continue to trend troponin
If with persistently severe uptrending troponin may need to consider cardiology input
Chronic prolonged Qtc
Avoid Qtc prolonged meds
Coronary artery disease
Continue aspirin
Continue acebutolol
Paroxysmal atrial fibrillation
Continue diltiazem; dec to 120mg daily
also on acebutolol
Continue Pradaxa
History of CVA
Continue statin
Chronic pain from arthritis
Uses medical marijuana
Essential hypertension
Monitor BP on cardizem and BB.
Holding HCTZ.
History of MAC infection
Rheumatoid arthritis
Continue leflunomide. On IV steroids.
Former smoker
History of diverticulitis status post partial colonic resection
History of nephrolithiasis
History of hepatitis C status posttreatment
History of alcoholic cirrhosis
Full code
Discussed with multiple family numbers at bedside
I spent a total of 79 minutes with the patient or on the floor. More than 50% of this time involved counseling and coordination of care.
[2023-12-29 18:38] LABS: COVID-19 Antigen Negative (Negative)
[2023-12-29 19:25] LABS: Magnesium 2.1 mg/dl (1.6-2.3)
[2023-12-29 19:29] LABS: Osmolality Serum 277 mOsm/kg (275-300)
--- NOTE | 2023-12-29 20:00 | PTCARENOTE ---
Pt transferred from ED. Pt ambulated with assistance, AAOX3, 2L, able to make needs known, VSS. Pt oriented to unit, call caldera within reach.
[2023-12-29] MEDS: PULMICORT 0.5 MG INH (21:02)
[2023-12-29 21:19] LABS: Osmolality Urine 282 mOsm/kg (300-900)
[2023-12-29 21:20] LABS: Troponin I 0.046 ng/ml
[2023-12-29 21:32] LABS: Urine Sodium 14 mmol/L (30-90)
[2023-12-29] MEDS: PRADAXA 150 MG PO (22:12)
[2023-12-29] MEDS: PLAQUENIL 200 MG PO (22:13)
[2023-12-29] MEDS: VIBRAMYCIN 100 MG PO (22:13)
[2023-12-29] MEDS: MUCINEX 600 MG PO (22:13)
[2023-12-29] MEDS: SECTRAL PO ×2 (22:14→22:21)
[2023-12-30 03:33] VITALS: BP 117/71
[2023-12-30 03:47] LABS: Hematocrit 33.3 % (39.0-52.0); Hemoglobin 11.8 g/dL (13.0-18.0); Mean Corp Hgb Conc. 35.4 g/dL (33.0-37.0); Mean Corpuscular Hgb 34.4 pg (27.0-31.0); Mean Corpuscular Volume 97.1 fL (80.0-94.0); Mean Platelet Volume 11.5 fL (7.4-10.4); Platelet Count 137 10^3/uL (130-400); Red Blood Cell Count 3.43 10^6/uL (4.70-6.10); Red Cell Dist. Width 12.9 % (11.5-14.5); White Blood Cell Count 7.6 10^3/uL (4.8-10.8)
[2023-12-30 04:12] LABS: Troponin I 0.038 ng/ml
[2023-12-30 04:14] LABS: Blood Urea Nitrogen 32 mg/dl (9-20); Calcium 7.7 mg/dl (8.4-10.2); Carbon Dioxide 21 mmol/L (22-30); Chloride 100 mmol/L (98-107); Estimated Creatinine Clearance 63 ml/min; Glucose 127 mg/dl (70-99); Magnesium 2.2 mg/dl (1.6-2.3); Potassium 3.2 mmol/L (3.5-5.1); Sodium 130 mmol/L (135-145); eGFR > 60.00
[2023-12-30 04:43] LABS: TSH Reflex To Free T4 0.14 uIU/ml (0.47-4.68)
[2023-12-30 05:21] LABS: Free T4 2.25 ng/dl (0.78-2.19)
[2023-12-30 06:00] VITALS: BMI 20.4
[2023-12-30 07:00] VITALS: BP 128/72
[2023-12-30] MEDS: DUONEB 3 ML INH ×4 (07:24→19:11)
[2023-12-30] MEDS: PULMICORT 0.5 MG INH ×2 (07:24→19:11)
[2023-12-30] MEDS: SECTRAL 200 MG PO (07:47)
[2023-12-30] MEDS: ASPIR LOW (ENTERIC COATED) 81 MG PO (07:49)
[2023-12-30] MEDS: CARDIZEM CD 120 MG PO (07:50)
[2023-12-30] MEDS: VIBRAMYCIN 100 MG PO ×2 (07:50→20:55)
[2023-12-30] MEDS: PRADAXA 150 MG PO ×2 (07:50→20:55)
[2023-12-30] MEDS: PROTONIX 40 MG PO (07:50)
[2023-12-30] MEDS: DECADRON 6 MG IV ×2 (07:52→20:55)
[2023-12-30] MEDS: MUCINEX 600 MG PO ×2 (07:52→20:55)
[2023-12-30] MEDS: PLAQUENIL 200 MG PO ×2 (07:52→20:55)
[2023-12-30] MEDS: KCL 40 MEQ PO (09:31)
--- NOTE | 2023-12-30 10:49 | W.PN.HOSP.TC ---
Today's Communication/Plan
-
cont IV steroids
bc
abx
await culture data
Assessment / Plan
Assessment / Plan
Acute COPD exacerbation
Cont patient on standing and as needed bronchodilators
Cont patient on Decadron 6 every 12
Keep O2 sats greater than 88%
Recent viral infection exposure now leading to secondary bacterial pneumonia
Start patient on ceftriaxone and doxycycline
Sputum sample in lab
Acute on chronic hyponatremia
Likely secondary to HCTZ
Hold HCTZ
DC further fluids and observe.
Trend BMP. Na improved.
Hypokalemia
Replete potassium
Troponin elevation likely non ishemic myocardial injury
Continue to trend troponin and downtrended
Chronic prolonged Qtc
Avoid Qtc prolonged meds
Coronary artery disease
Continue aspirin
Continue acebutolol
Paroxysmal atrial fibrillation
Continue diltiazem; dec to 120mg daily
also on acebutolol
Continue Pradaxa
History of CVA
Continue statin
Chronic pain from arthritis
Uses medical marijuana
Essential hypertension
Monitor BP on cardizem and BB.
Holding HCTZ.
History of MAC infection
Rheumatoid arthritis
Continue leflunomide. On IV steroids.
Former smoker
History of diverticulitis status post partial colonic resection
History of nephrolithiasis
History of hepatitis C status posttreatment
History of alcoholic cirrhosis
Full code
Anticipated Discharge: > 48 hours
Subjective/Interval History
-
Date of Service: December 30, 2023
States feeling significantly better compared to yesterday
remains with cough
Objective Data
-
Labs:
Laboratory Results
12/30/23
03:22
WBC 7.6
Hgb 11.8 L
Hct 33.3 L
Plt Count 137
Sodium 130 L
Potassium 3.2 L
Chloride 100
Carbon Dioxide 21 L
BUN 32 H
Creatinine 1.0
Glucose 127 H
Calcium 7.7 L
Vital Signs:
Vital Signs
Temp Pulse Resp BP Pulse Ox
98.2 F 80 16 128/72 95
12/30/23 07:00 12/30/23 07:47 12/30/23 07:29 12/30/23 07:47 12/30/23 08:24
I&O
12/29/23 12/30/23 12/31/23
06:59 06:59 06:59
Intake Total 840 / 840
Output Total 650 / 650
Balance 840 / 840 -650 / -650
Physical Exam
-
General: No Apparent Distress, Appears Chronically Ill and Other (disshelved )
HEENT: Normocephalic, Atraumatic and Moist Mucous Membranes
Respiratory: Wheezes (improved )
Cardiac: Regular Rhythm and S1/S2; Negative Murmur, Rub or Gallop
GI: Soft, Nontender, Nondistended and Normal Bowel Sounds; Negative Organomegaly
Rectal: Deferred by Provider
Musculoskeletal: No Clubbing, No Cyanosis and No Edema
Skin: Negative Rash
Neuro: Awake, AO x 3 and Nonfocal/Grossly Intact
Psych: Calm
Data Reviewed
-
Total Time Spent with Patient (in minutes): 55
[2023-12-30] MEDS: NSS IV (11:02)
--- NOTE | 2023-12-30 11:18 | CM ---
Patient seen in chair, initial assessment completed. Patient resides with his , son, daughter in law, and two granddaughters in a multiple story home, multiple stairs to enter home. Patient denies DME, VN, or SNF. Patient confirms PCP Demetrius
Maximiliano, [facility], confirms prescription coverage. Patient denies food insecurities. Anticipated discharge greater 48 hours. CM will continue to follow for discharge planning needs.
Plan; home no needs likely.
[2023-12-30 11:27] VITALS: BP 126/73
[2023-12-30 15:00] VITALS: BP 127/81
[2023-12-30] MEDS: ROCEPHIN 1000 MG IV (17:15)
[2023-12-30] MEDS: LIPITOR 80 MG PO (17:15)
[2023-12-30] MEDS: STERILE WATER FOR INJECTION 10 ML IV (17:16)
[2023-12-30 19:50] VITALS: BP 128/75
[2023-12-30] MEDS: SECTRAL 400 MG PO (20:54)
[2023-12-30 23:10] VITALS: BP 133/74
[2023-12-31 03:10] VITALS: BP 122/76
[2023-12-31 07:00] VITALS: BP 131/75
[2023-12-31 07:18] LABS: % Basophils 0.6 % (0-2); % Eosinophils 0.6 % (0-6); % Lymphocytes 4.3 % (20.5-51.1); % Monocytes 9.3 % (1.7-9.3); % Neutrophils 84.2 % (42.2-75.2); Absolute Basophils 0.1 10^3/uL (0-0.2); Absolute Eosinophils 0.1 10^3/uL (0-0.7); Absolute Immature Granulocytes 0.1 10^3/uL (0-0.05); Absolute Lymphocytes 0.4 10^3/uL (1.2-3.4); Absolute Monocytes 0.8 10^3/uL (0.1-0.6); Absolute Neutrophils 7.5 10^3/uL (1.4-6.5); Hemoglobin 12.4 g/dL (13.0-18.0); Mean Corp Hgb Conc. 34.4 g/dL (33.0-37.0); Mean Corpuscular Hgb 34.5 pg (27.0-31.0); Mean Corpuscular Volume 100.3 fL (80.0-94.0); Mean Platelet Volume 11.2 fL (7.4-10.4); Nucleated Red Blood Cells % 0 % (-); Platelet Count 158 10^3/uL (130-400); Red Blood Cell Count 3.59 10^6/uL (4.70-6.10); Red Cell Dist. Width 12.8 % (11.5-14.5); White Blood Cell Count 8.8 10^3/uL (4.8-10.8)
[2023-12-31 07:47] LABS: Blood Urea Nitrogen 29 mg/dl (9-20); Calcium 8.4 mg/dl (8.4-10.2); Carbon Dioxide 24 mmol/L (22-30); Chloride 105 mmol/L (98-107); Estimated Creatinine Clearance 70 ml/min; Glucose 142 mg/dl (70-99); Potassium 3.8 mmol/L (3.5-5.1); Sodium 133 mmol/L (135-145); eGFR > 60.00
[2023-12-31] MEDS: PULMICORT 0.5 MG INH (07:51)
[2023-12-31] MEDS: DUONEB 3 ML INH (07:51)
[2023-12-31] MEDS: ASPIR LOW (ENTERIC COATED) 81 MG PO (10:36)
[2023-12-31] MEDS: MUCINEX 600 MG PO ×2 (10:36→20:53)
[2023-12-31] MEDS: SECTRAL 400 MG PO (10:37)
[2023-12-31] MEDS: PRADAXA 150 MG PO ×2 (10:37→20:53)
[2023-12-31] MEDS: PROTONIX 40 MG PO (10:37)
[2023-12-31] MEDS: PLAQUENIL 200 MG PO ×2 (10:38→20:53)
[2023-12-31] MEDS: CARDIZEM CD 120 MG PO (10:38)
[2023-12-31] MEDS: DECADRON 6 MG IV (10:38)
[2023-12-31] MEDS: VIBRAMYCIN 100 MG PO ×2 (10:39→20:55)
[2023-12-31 11:00] VITALS: BP 134/65
--- NOTE | 2023-12-31 11:17 | CM ---
Patient seen in chair, reports no needs to CM. Per PT, no skilled PT need. CM will continue to follow for discharge planning needs.
Plan; home no needs likely.
--- NOTE | 2023-12-31 11:35 | W.PN.HOSP.TC ---
Today's Communication/Plan
-
Check ECHO
IV steroids
BC
Abx
Assessment / Plan
Assessment / Plan
#Acute COPD exacerbation
Cont patient on standing and as needed bronchodilators
Cont patient on Decadron 6 every 12. Can start taper in 24h.
Keep O2 sats greater than 88%
#Recent viral infection exposure now leading to secondary bacterial pneumonia
Start patient on ceftriaxone and doxycycline
Sputum sample in lab -usual resp francis
#Acute on chronic hyponatremia
Likely secondary to HCTZ
Hold HCTZ
DC further fluids and observe.
Trend BMP. Na improving
#Hypokalemia
Replete potassium
#Troponin elevation likely non ishemic myocardial injury
Continue to trend troponin and downtrended
Check ECHO
Chronic prolonged Qtc
Avoid Qtc prolonged meds
Coronary artery disease
Continue aspirin
Continue acebutolol
Paroxysmal atrial fibrillation
Continue diltiazem 120mg daily
also on acebutolol
Continue Pradaxa
History of CVA
Continue statin
Chronic pain from arthritis
Uses medical marijuana
Essential hypertension
Monitor BP on cardizem and BB.
Holding HCTZ.
History of MAC infection
Rheumatoid arthritis
Continue leflunomide. On IV steroids.
Former smoker
History of diverticulitis status post partial colonic resection
History of nephrolithiasis
History of hepatitis C status posttreatment
History of alcoholic cirrhosis
Full code
Anticipated Discharge: 24 - 48 hours
Subjective/Interval History
-
Date of Service: December 31, 2023
states breathing is slowly improving
remains with productive cough
Objective Data
-
Labs:
Laboratory Results
12/31/23
06:56
WBC 8.8
Hgb 12.4 L
Hct 36.0 L
Plt Count 158
Sodium 133 L
Potassium 3.8
Chloride 105
Carbon Dioxide 24
BUN 29 H
Creatinine 0.9
Glucose 142 H
Calcium 8.4
Vital Signs:
Vital Signs
Temp Pulse Resp BP Pulse Ox
97.8 F 84 18 131/75 95
12/31/23 07:00 12/31/23 07:54 12/31/23 07:54 12/31/23 07:00 12/31/23 07:54
I&O
12/30/23 12/31/23 01/01/24
06:59 06:59 06:59
Intake Total 840 / 840 1120 / 1120
Output Total 1250 / 1250
Balance 840 / 840 -130 / -130
Physical Exam
-
General: No Apparent Distress, Appears Chronically Ill and Other (disshelved )
HEENT: Normocephalic, Atraumatic and Moist Mucous Membranes
Respiratory: Wheezes (improving ) and Rales (mild )
Cardiac: Regular Rhythm and S1/S2; Negative Murmur, Rub or Gallop
GI: Soft, Nontender, Nondistended and Normal Bowel Sounds; Negative Organomegaly
Rectal: Deferred by Provider
Musculoskeletal: No Clubbing, No Cyanosis and No Edema
Skin: Negative Rash
Neuro: Awake, AO x 3 and Nonfocal/Grossly Intact
Psych: Calm
Data Reviewed
-
Total Time Spent with Patient (in minutes): 55
[2023-12-31] MEDS: DUONEB INH (11:49)
[2023-12-31] MEDS: TESSALON PERLES 200 MG PO ×2 (12:55→20:52)
[2023-12-31 15:00] VITALS: BP 137/85
[2023-12-31] MEDS: ROCEPHIN 1000 MG IV (18:47)
[2023-12-31] MEDS: LIPITOR 80 MG PO (18:47)
[2023-12-31] MEDS: STERILE WATER FOR INJECTION 10 ML IV (18:48)
[2023-12-31] MEDS: NON-FORMULARY ITEM 1 INH INH (19:47)
[2023-12-31] MEDS: SPIRIVA RESPIMAT 2.5 MCG 2 PUFF INH (19:47)
[2023-12-31] MEDS: PULMICORT INH (19:47)
[2023-12-31 20:12] VITALS: BP 132/83
[2023-12-31] MEDS: DECADRON 4 MG IV (20:55)
[2023-12-31] MEDS: SECTRAL PO (20:58)
[2023-12-31 23:27] VITALS: BP 143/84
[2023-12-31] MEDS: MELATONIN 5 MG PO (23:32)
--- NOTE | 2024-01-01 03:02 | PTCARENOTE ---
Pt's cardiac stickers needed to be changed, pt. sweating and rhythm not showing, pt. became agitated and started pulling off the leads and box while staff trying to change stickers and gown, pt. not saying anything and looking straight ahead when
staff asked why he was upset, pt. did not respond.
[2024-01-01 03:44] VITALS: BP 142/80
[2024-01-01 06:00] VITALS: BMI 20.6
[2024-01-01] MEDS: TESSALON PERLES 200 MG PO ×2 (06:19→13:06)
[2024-01-01] MEDS: PULMICORT 0.5 MG INH (07:20)
[2024-01-01 07:52] VITALS: BP 134/81
[2024-01-01] MEDS: ASPIR LOW (ENTERIC COATED) 81 MG PO (08:02)
[2024-01-01] MEDS: DECADRON 4 MG IV (08:05)
[2024-01-01] MEDS: PROTONIX 40 MG PO (08:05)
[2024-01-01] MEDS: MUCINEX 600 MG PO (08:05)
[2024-01-01] MEDS: SECTRAL PO (08:06)
[2024-01-01] MEDS: VIBRAMYCIN 100 MG PO (08:06)
[2024-01-01] MEDS: PLAQUENIL 200 MG PO (08:06)
[2024-01-01] MEDS: CARDIZEM CD PO (08:07)
[2024-01-01] MEDS: PRADAXA 150 MG PO (08:10)
[2024-01-01 08:55] LABS: % Basophils 0.3 % (0-2); % Immature Granulocytes 0.8 % (0-0.5); % Lymphocytes 5.1 % (20.5-51.1); % Monocytes 10.8 % (1.7-9.3); Absolute Immature Granulocytes 0.1 10^3/uL (0-0.05); Absolute Lymphocytes 0.4 10^3/uL (1.2-3.4); Absolute Monocytes 0.8 10^3/uL (0.1-0.6); Hematocrit 35.1 % (39.0-52.0); Hemoglobin 12.3 g/dL (13.0-18.0); Mean Corpuscular Hgb 34.5 pg (27.0-31.0); Mean Corpuscular Volume 98.3 fL (80.0-94.0); Mean Platelet Volume 11.4 fL (7.4-10.4); Nucleated Red Blood Cells % 0 % (-); Platelet Count 189 10^3/uL (130-400); Red Blood Cell Count 3.57 10^6/uL (4.70-6.10); Red Cell Dist. Width 13.1 % (11.5-14.5); White Blood Cell Count 7.2 10^3/uL (4.8-10.8)
[2024-01-01 08:58] LABS: Blood Urea Nitrogen 35 mg/dl (9-20); Calcium 8.6 mg/dl (8.4-10.2); Carbon Dioxide 25 mmol/L (22-30); Chloride 104 mmol/L (98-107); Estimated Creatinine Clearance 70 ml/min; Glucose 131 mg/dl (70-99); Potassium 3.9 mmol/L (3.5-5.1); Sodium 132 mmol/L (135-145); eGFR > 60.00
[2024-01-01 11:20] VITALS: BP 136/85
--- NOTE | 2024-01-01 11:31 | W.PN.HOSP.TC ---
Today's Communication/Plan
-
wants to leave today mayela
po abx
po steroids
pcp f/u
dc plaquenil/hctz /zofran
Assessment / Plan
Assessment / Plan
#Acute COPD exacerbation
Cont patient on standing and as needed bronchodilators-pt insisting on take his own inhalers
IV Decadron to be decreased to p.o. prednisone with quick taper regimen back to his baseline prednisone
Keep O2 sats greater than 88%
remains stable on room air.
#Recent viral infection exposure now leading to secondary bacterial pneumonia
Start patient on ceftriaxone and doxycycline
Sputum sample in lab -usual resp francis
Switch to p.o. antibiotic and complete course of 7 days.
#Acute on chronic hyponatremia
Likely secondary to HCTZ
DC HCTZ
DC further fluids and observe.
Trend BMP. Na improving
#Hypokalemia
Replete potassium
# Nonischemic myocardial injury
Continue to trend troponin and downtrended
ECHO-EF of 60 to 65%. Stage II diastolic dysfunction suggestive of abnormal relaxation increased filling pressures. Mild tricuspid regurgitation. Mild mitral regurgitation. PASP 38-25%. Compared to 07/12 now stage II diastolic dysfunction
Chronic prolonged Qtc
Avoid Qtc prolonged meds and discontinue Plaquenil and Zofran
Qtc improved. Recommended to hold Plaquenil now that her outpatient primary doctor. Repeat EKG or cardiology for QTc interval.
DC plaquenil and pt agreed. States will f/u with primary doctor/rheum for further managment
Coronary artery disease
Continue aspirin
Continue acebutolol
Paroxysmal atrial fibrillation
Continue diltiazem 120mg daily
also on acebutolol
Continue Pradaxa
History of CVA
Continue statin
Chronic pain from arthritis
Uses medical marijuana
Essential hypertension
Monitor BP on cardizem and BB.
DC HCTZ.
History of MAC infection
Rheumatoid arthritis
Restart leflunomide after completion of antibiotics and outpatient rheumatology follow-up.
Recommend outpatient rheumatology follow-up.
Former smoker
History of diverticulitis status post partial colonic resection
History of nephrolithiasis
History of hepatitis C status posttreatment
History of alcoholic cirrhosis
Full code
DC home outpatient PCP follow-up on Wednesday
More than 30 minutes spent in discharge including
Final examination of the patient
Summarizing hospital stay
Instructions for continuing care to all relevant caregivers
Preparation of discharge records, prescriptions, and referral forms
Total time spent (in minutes): 55
Anticipated Discharge: Today
Subjective/Interval History
-
Date of Service: January 01, 2024
States breathing has improved
Cough has improved
States he wants to go home. Will leave AMA if not discharged.
Stable on room air.
Objective Data
-
Labs:
Laboratory Results
01/01/24
07:33
WBC 7.2
Hgb 12.3 L
Hct 35.1 L
Plt Count 189
Sodium 132 L
Potassium 3.9
Chloride 104
Carbon Dioxide 25
BUN 35 H
Creatinine 0.9
Glucose 131 H
Calcium 8.6
Vital Signs:
Vital Signs
Temp Pulse Resp BP Pulse Ox
97.9 F 55 14 136/85 95
01/01/24 11:20 01/01/24 11:20 01/01/24 11:20 01/01/24 11:20 01/01/24 11:20
I&O
12/31/23 01/01/24 01/02/24
06:59 06:59 06:59
Intake Total 1120 / 1120 1370 / 1370
Output Total 1250 / 1250
Balance -130 / -130 1370 / 1370
Physical Exam
-
General: No Apparent Distress, Appears Chronically Ill and Other (disshelved )
HEENT: Normocephalic, Atraumatic and Moist Mucous Membranes
Respiratory: Clear to Auscultation
Cardiac: Regular Rhythm and S1/S2; Negative Murmur, Rub or Gallop
GI: Soft, Nontender, Nondistended and Normal Bowel Sounds; Negative Organomegaly
Rectal: Deferred by Provider
Musculoskeletal: No Clubbing, No Cyanosis and No Edema
Skin: Negative Rash
Neuro: Awake, AO x 3 and Nonfocal/Grossly Intact
Psych: Calm
[2024-01-01 12:21] LABS: Magnesium 2.1 mg/dl (1.6-2.3)
--- NOTE | 2024-01-01 13:07 | W.DCSUMMARY ---
Discharge Summary
Discharge Data
Date of Admission: 12/29/23
Date of Discharge: 01/01/24
-
Pending Results: No
Hospital Course
68-year-old male past medical history of hypertension, rheumatoid arthritis, history of tobacco abuse, COPD, atrial fibrillation not on anticoagulation who is presenting from home with shortness of breath and productive cough. Patient with severe
wheezing on admission. Patient was started on IV steroids and bronchodilators. Patient with productive cough. Patient was started on antibiotics with IV ceftriaxone and doxycycline. Patient symptomology continues to improve with IV steroids and
bronchodilators. Patient remained afebrile and was stable on room air. Patient QTc improved compared to admission and Zofran and Plaquenil was discontinued. Patient insisting on going home otherwise states that he would leave AGAINST MEDICAL
ADVICE. Patient already has an appointment with PCP on 01/04/2024 and recommended repeat EKG for QTc monitor. Patient also with hyponatremia which seems chronic and hydrochlorothiazide was discontinued. IV steroids were discontinued and discharged
on p.o. prednisone taper. After completion of high-dose prednisone taper patient will restart his home regimen of chronic prednisone 7.5 mg daily. Patient was afebrile and stable on room air and will be discharged home with outpatient primary
doctor and rheumatology follow-up.
Discharge Plan
-
Patient Disposition: Home (Routine Discharge)
Discharge Diagnosis/Procedures: Acute COPD exacerbation
Recent viral infection exposure now leading to secondary bacterial pneumonia
Acute on chronic hyponatremia
Hypokalemia
Non ischemic myocardial injury
Condition: Fair
Diet: As tolerated
Driving Restrictions: As prior to admission
Blood Work: Check BMP via primary doctor next week
Others Tests: EKG with primary doctor on 01/04/24
Activity Restrictions/Additional Instructions:
Recommend to follow up with primary doctor for EKG TO MONITOR QTC interval.
Restart prednisone home dose of 7.5 mg after completion of prednisone taper therapy
Referrals:
Demetrius Viera PA-C [Family Provider] - 01/04/24
Additional Discharge Medication Instructions: zofran, Hydroxychloroquine and Hydrochlorothiazide was discontinued.
Prescriptions:
New
doxycycline hyclate 100 mg Capsule
100 mg PO Q12 4 Days Qty: 8 0RF
cefdinir 300 mg capsule
300 mg PO BID Qty: 8 0RF
prednisone 10 mg Tablet
See Rx Instructions .ROUTE .COMPLEX Qty: 27 0RF
Rx Instructions:
Take By Mouth:
40 mg daily x3 days, 30 mg daily x3 days,
20 mg daily x3 days,
Continued
tiotropium bromide [Spiriva with HandiHaler] 18 MCG capsule, w/inhalation device
1 puff inhalation R DAILY@1600
dabigatran etexilate [Pradaxa] 150 MG capsule
150 mg PO BID Qty: 60 2RF
acebutolol 400 mg Capsule
200 mg PO DAILY
aspirin 81 mg Tablet,Delayed Release (Dr/Ec)
81 mg PO DAILY
fluticasone furoate-vilanterol [Breo Ellipta] 200-25 mcg/dose Blister With Device
1 inh INHALATION R DAILY@1600
atorvastatin 80 MG tablet
80 mg PO QPM
pantoprazole [Protonix] 40 mg tablet,delayed release (DR/EC)
40 mg PO BIDPRN PRN (Reason: gerd)
diltiazem HCl 120 MG capsule,extended release 24hr
120 mg PO DAILY
Held
prednisone 5 MG tablet
7.5 mg PO DAILY@1930
Hold Instructions: Resume on 01/11/24. Restart after completion of prednisone taper
leflunomide 20 mg Tablet
20 mg PO DAILY
Hold Instructions: Resume on 01/10/24.
Discontinued
hydroxychloroquine 200 MG tablet
200 mg PO BID
hydrochlorothiazide 25 mg Tablet
25 mg PO DAILY
Cough and Cold 5-10-100 mg/5 mL Liquid
10 ml PO Q4HPRN PRN (Reason: cough)
ondansetron 4 mg tablet,disintegrating
4 mg PO Q8HPRN PRN (Reason: nausea and vomiting)
Discharge Orders:
Discharge Patient (As Directed); Ordered 01/01/24
Ordered By: Félix Blair
Discharge Date and Time
Discharge Date/Time: 01/01/24 14:07
Print Language: UKRAINIAN
--- NOTE | 2024-01-01 13:09 | CM ---
Chart reviewed and plan is to home today, no needs.
Plan; Home no needs.
[2024-01-01 13:17] VITALS: BP 146/86
== END 2024-01-01 14:07 | disposition home or self-care (01) | DRG 190 ==
LOC: 4 WEST ACU 19:14
PROVIDERS: Emergency Medicine; Physician Assistant Medical; ADMITTING PHYSICIAN Hospitalist; EMERGENCY PHYSICIAN Emergency Medicine; FAMILY PHYSICIAN Physician Assistant Medical
DX: J44.1 Chronic obstructive pulmonary disease with (acute) exacerbation (principal); J18.9 Pneumonia, unspecified organism; E87.1 Hypo-osmolality and hyponatremia; I5A Non-ischemic myocardial injury (non-traumatic); J44.0 Chronic obstructive pulmonary disease with (acute) lower respiratory infection; M06.9 Rheumatoid arthritis, unspecified; E87.6 Hypokalemia; I25.10 Atherosclerotic heart disease of native coronary artery without angina pectoris; I48.0 Paroxysmal atrial fibrillation; I10 Essential (primary) hypertension; Z87.891 Personal history of nicotine dependence
CPT/HCPCS: 71046; 80048; 80053; 81003; 81015; 83735; 83930; 83935; 84300; 84439; 84443; 84484; 85025; 85027; 87040; 87070; 87086; 87205; 87502; 87811; 93005; 93306; 94640; 96361; 96374; 96375; 99285

== ENCOUNTER → 2025-02-19 09:00 | Outpatient (REF) | payer OTHER, SELFPAY | LOC: HWRAD 09:00 | PROVIDERS: ATTENDING PHYSICIAN Nurse Practitioner Adult Health; FAMILY PHYSICIAN Physician Assistant Medical | DX: R91.8 Other nonspecific abnormal finding of lung field (principal) | CPT/HCPCS: 71250 ==

== ENCOUNTER → 2025-03-12 09:47 | Outpatient (REF) | payer OTHER, SELFPAY | LOC: PET 09:47 | PROVIDERS: ATTENDING PHYSICIAN Nurse Practitioner Adult Health | DX: R91.1 Solitary pulmonary nodule (principal) | CPT/HCPCS: 78815; A9552 ==

== ENCOUNTER 2025-03-19 06:04 | Day surgery (SDC) | payer OTHER, SELFPAY ==
[2025-03-16 14:03] VITALS: BMI 19.0
[2025-03-16 14:42] LABS: Hematocrit 38.9 % (39.0-52.0); Hemoglobin 12.3 g/dL (13.0-18.0); Mean Corp Hgb Conc. 31.6 g/dL (33.0-37.0); Mean Corpuscular Volume 103.2 fL (80.0-94.0); Platelet Count 342 10^3/uL (130-400); Red Cell Dist. Width 14.3 % (11.5-14.5)
[2025-03-16 14:52] LABS: INR 1.18; PT 15.3 Sec (11.4-14.6)
[2025-03-16 14:53] LABS: APTT 33.4 Sec (23.4-35.0)
[2025-03-16 15:12] LABS: Blood Urea Nitrogen 27 mg/dl (9-20); Calcium 9.7 mg/dl (8.4-10.2); Carbon Dioxide 28 mmol/L (22-30); Chloride 102 mmol/L (98-107); Estimated Creatinine Clearance 27 ml/min; Glucose 102 mg/dl (70-99); Potassium 4.6 mmol/L (3.5-5.1); Sodium 139 mmol/L (135-145); eGFR 33.66
--- NOTE | 2025-03-16 15:28 | PTCARENOTE ---
Rosy in office made aware of Cr 2.1 and GFR 33.66.
[2025-03-19] VITALS (13 sets, daily range): BP systolic 85–135; BP diastolic 67–80; BMI 20.8
[2025-03-19 14:47] LABS: Brochalveolar Lavage Character Hazy (Clear); Brochalveolar Lavage Color Red; Brochalveolar Lavage Volume 4.5 ml
[2025-03-19 14:48] LABS: Brochalveolar Lavage WBC 48000 cells/ml
== END 2025-03-19 13:10 | disposition home or self-care (01) ==
LOC: GI 06:04
PROVIDERS: ATTENDING PHYSICIAN Internal Medicine Critical Care Medicine; FAMILY PHYSICIAN Physician Assistant Medical
DX: R91.8 Other nonspecific abnormal finding of lung field (principal); J44.9 Chronic obstructive pulmonary disease, unspecified; J43.9 Emphysema, unspecified; R09.89 Other specified symptoms and signs involving the circulatory and respiratory systems; R91.1 Solitary pulmonary nodule; D14.32 Benign neoplasm of left bronchus and lung
CPT/HCPCS: 31629; 31628; 31645; 31623; 31624; 31627; 31654; 36415; 71045; 76000; 80048; 85027; 85610; 85730; 87070; 87102; 87116; 87205; 88112; 88173; 88305; 88312; 88333; 89051; C1887